=== PATIENT | male | born 1945 | race Caucasian/White ===

== ENCOUNTER 2018-02-21 16:20 | Emergency (ER) | payer OTHER, MEDICARE ==
[2018-02-21] MEDS ORDERED: ASPIRIN 81 MG TABLET, CHEWABLE PO ONE (17:11)
--- NOTE | 2018-02-21 17:13 | ER Document Report ---
ED Medical Screen (RME) - General Chief Complaint: Chest Pain Stated Complaint: CHEST PAIN Time Seen by Provider: 02/21/18 17:06 TRAVEL OUTSIDE OF THE U.S. IN LAST 30 DAYS: No - HPI Notes: 02/21/18 17:12 Chest pain recent pacemaker placement in [place] 2 weeks ago substernal intermittent no pain in triage - Related Data Allergies/Adverse Reactions: No Known Allergies Allergy (Verified 09/05/16 16:25) Past Medical History - Past Medical History Cardiac Medical History: Reports: Hx Atrial Fibrillation, Hx Hypercholesterolemia, Hx Hypertension Past Surgical History: Reports: Hx Cardiac Catheterization - stents x3, Hx Cardiac Surgery - stents - Immunizations Hx Diphtheria, Pertussis, Tetanus Vaccination: Yes Review of Systems - Review of Systems Cardiovascular: Chest pain Physical Exam - Vital signs Vitals: Temp Pulse Resp BP Pulse Ox 97.9 F 85 20 140/74 H 98 02/21/18 16:37 02/21/18 16:37 02/21/18 16:37 02/21/18 16:37 02/21/18 16:37 - Respiratory Respiratory status: No respiratory distress Chest status: Nontender Breath sounds: Normal Chest palpation: Normal - Cardiovascular Rhythm: Regular Heart sounds: Normal auscultation Course - Vital Signs Vital signs: Temp Pulse Resp BP Pulse Ox 97.9 F 85 20 140/74 H 98 02/21/18 16:37 02/21/18 16:37 02/21/18 16:37 02/21/18 16:37 02/21/18 16:37 Doctor's Discharge - Discharge Referrals: PAUL LARA MD [Primary Care Provider] - Follow up as needed
--- NOTE | 2018-02-21 17:38 | RADIOLOGY REPORT (SQ) ---
EXAM DESCRIPTION: CHEST 2 VIEWS COMPLETED DATE/TIME: 02/21/2018 5:26 pm REASON FOR STUDY: cp COMPARISON: 09/10/2015 EXAM PARAMETERS: NUMBER OF VIEWS: two views TECHNIQUE: Digital Frontal and Lateral radiographic views of the chest acquired. RADIATION DOSE: NA LIMITATIONS: none FINDINGS: LUNGS AND PLEURA: No opacities, masses or pneumothorax. No pleural effusion. MEDIASTINUM AND HILAR STRUCTURES: Stable postoperative appearance. HEART AND VASCULAR STRUCTURES: Cardiomegaly stable. No overt CHF. BONES: No acute findings. HARDWARE: Transvenous pacer. Operative change mediastinum OTHER: No other significant finding. IMPRESSION: Cardiomegaly. Postoperative changes in transvenous pacer. No overt CHF. TECHNICAL DOCUMENTATION: JOB ID: [id number] [employer]- All Rights Reserved Reading location - IP/workstation name: [email or web address]
[2018-02-21 18:04] LABS: ABSOLUTE BASOPHILS # (AUTO) 0.1 10^3/uL (0.0-0.2); ABSOLUTE EOSINOPHILS # (AUTO) 0.2 10^3/uL (0.0-0.6); ABSOLUTE LYMPHOCYTES (AUTO) 1.7 10^3/uL (0.5-4.7); ABSOLUTE MONOCYTES (AUTO) 0.8 10^3/uL (0.1-1.4); ABSOLUTE NEUT (AUTO) 8.5 10^3/uL (1.7-8.2); BASOPHILS % (AUTO) 0.5 % (0-2); EOSINOPHILS % (AUTO) 1.8 % (0-6); HEMATOCRIT 35.7 % (37.9-51.0); HEMOGLOBIN 12.2 g/dL (13.5-17.0); LYMPHOCYTES % (AUTO) 15.3 % (13-45); MEAN CORPUSCULAR HEMOGLOBIN 31.5 pg (27.0-33.4); MEAN CORPUSCULAR HGB CONC 34.2 g/dL (32.0-36.0); MEAN CORPUSCULAR VOLUME 92 fl (80-97); MONOCYTES % (AUTO) 7.3 % (3-13); PLATELET COUNT 305 10^3/uL (150-450); RED BLOOD COUNT 3.89 10^6/uL (4.35-5.55); RED CELL DISTRIBUTION WIDTH 13.3 % (11.5-14.0); SEGMENTED NEUTROPHILS % (AUTO) 75.1 % (42-78); TOTAL CELLS COUNTED % (AUTO) 100 %; WHITE BLOOD COUNT 11.3 10^3/uL (4.0-10.5)
[2018-02-21 18:23] LABS: ALANINE AMINOTRANSFERASE 31 U/L (21-72); ALBUMIN 4.1 g/dL (3.5-5.0); ALKALINE PHOSPHATASE 206 U/L (38-126); ANION GAP 12 (5-19); ASPARTATE AMINO TRANSFERASE 27 U/L (17-59); BILIRUBIN,DIRECT 0.5 mg/dL (0.0-0.4); BILIRUBIN,TOTAL 0.6 mg/dL (0.2-1.3); BLOOD UREA NITROGEN 28 mg/dL (7-20); CALCIUM 9.7 mg/dL (8.4-10.2); CARBON DIOXIDE 29 mmol/L (22-30); CHLORIDE 104 mmol/L (98-107); CREATINE KINASE 56 U/L (55-170); GLUCOSE 93 mg/dL (75-110); POTASSIUM 4.7 mmol/L (3.6-5.0); SODIUM 144.5 mmol/L (137-145); TOTAL PROTEIN 7.3 g/dL (6.3-8.2)
[2018-02-21 18:34] LABS: CREATINE KINASE MB 1.06 ng/mL (<4.55)
[2018-02-21 18:35] LABS: TROPONIN I < 0.012 ng/mL
--- NOTE | 2018-02-21 18:56 | ER Document Report ---
ED Cardiac - General Mode of Arrival: Ambulatory Information source: Patient TRAVEL OUTSIDE OF THE U.S. IN LAST 30 DAYS: No <RAMY STANLEY - Last Filed: 02/22/18 00:09> <KAILEE CONNELLY - Last Filed: 02/22/18 00:31> - General Chief Complaint: Chest Pain Stated Complaint: CHEST PAIN Time Seen by Provider: 02/21/18 17:06 Notes: 73 y.o male presents to the ED with CP today around 1430 today. Pt reports that after onset of CP he took one Nitroglycerin wich relieved his sx. Pt reports that he had CP yesterday for a short period of time and that he has had CP like this in the past. He states that his pain is located across his upper chest, starting as a pressure and then continues as a dull pain. He reports taking 324mg of Aspirin today. Pt denies any trouble breathing, fever or cough but admits to a dizzy spell about 4 days ago. He denies his pacemaker firing during his dizzy spell. Pt recently had a [employer] pacemaker placed in [place] with Dr. Paul. He states that he got a pacemaker because he was having a very low heart rate and intermittent erratic heart rate. Pt states that his pacemaker autotransmits. Pt reports a Hx of 2 stent placements and a recent cardiac catheterization since his stent placement, before seeing Dr. Paul for his having pacemaker placement one month ago. Pt reports that he takes 81mg Apirin and Eliquis daily as well as 3.2mg of Coreg which he was recently started on by Dr. Paul. [facility] referred him to Dr. Paul for the pacemaker. ( RAMY STANLEY) - Related Data Allergies/Adverse Reactions: No Known Allergies Allergy (Verified 09/05/16 16:25) Past Medical History - General Information source: Patient - Social History Smoking Status: Never Smoker Chew tobacco use (# tins/day): No Frequency of alcohol use: Rare Drug Abuse: None Family History: Reviewed & Not Pertinent Patient has suicidal ideation: No Patient has homicidal ideation: No - Past Medical History Cardiac Medical History: Reports: Hx Atrial Fibrillation, Hx Hypercholesterolemia, Hx Hypertension Endocrine Medical History: Reports: Hx Diabetes Mellitus Type 2 Renal/ Medical History: Denies: Hx Peritoneal Dialysis Past Surgical History: Reports: Hx Cardiac Catheterization - stents x3, Hx Cardiac Surgery - pacemaker - Immunizations Hx Diphtheria, Pertussis, Tetanus Vaccination: Yes <RAMY STANLEY - Last Filed: 02/22/18 00:09> Review of Systems - Review of Systems Constitutional: See HPI. denies: Fever EENT: No symptoms reported Cardiovascular: See HPI, Chest pain, Dizziness - 4 days ago Respiratory: See HPI. denies: Cough, Short of breath Gastrointestinal: No symptoms reported Genitourinary: No symptoms reported Male Genitourinary: No symptoms reported Musculoskeletal: No symptoms reported Skin: No symptoms reported Hematologic/Lymphatic: No symptoms reported Neurological/Psychological: No symptoms reported -: Yes All other systems reviewed and negative <RAMY STANLEY - Last Filed: 02/22/18 00:09> Physical Exam <RAMY STANLEY - Last Filed: 02/22/18 00:09> <KAILEE CONNELLY - Last Filed: 02/22/18 00:31> - Vital signs Vitals: Temp Pulse Resp BP Pulse Ox 97.9 F 85 20 140/74 H 98 02/21/18 16:37 02/21/18 16:37 02/21/18 16:37 02/21/18 16:37 02/21/18 16:37 - Notes Notes: Physical Exam: General: Alert, appears well. HEENT: Normocephalic. Atraumatic. PERRL. Extraocular movements intact. Oropharynx clear. Neck: Supple. Non-tender. Respiratory: No respiratory distress. Clear and equal breath sounds bilaterally. Cardiovascular: Regular rate and rhythm. Abdominal: Normal Inspection. Non-tender. No distension. Normal Bowel Sounds. Back: Non-tender. No deformity or step off. Extremities: Moves all four extremities. Upper extremities: Normal inspection. Normal ROM. Lower extremities: Normal inspection. No edema. Normal ROM. Neurological: Normal cognition. AAOx3. Normal speech. Psychological: Normal affect. Normal Mood. Skin: Warm. Dry. Normal color. (RAMY STANLEY) Course - Laboratory Result Diagrams: 02/21/18 17:42 02/21/18 17:42 <RAMY STANLEY - Last Filed: 02/22/18 00:09> - Laboratory Result Diagrams: 02/21/18 17:42 02/21/18 17:42 <KAILEE CONNELLY - Last Filed: 02/22/18 00:31> - Re-evaluation Re-evalutation: 02/21/18 20:07 Talked with Regan from [employer] who reports that the pacemaker is functioning well and is without events. 02/21/18 20:10 Talked with [facility] to have shingle weaver call back concerning pt. 02/21/18 20:35 Talked with Radha Clemens who called back from from [facility]. She states that if the patient's second Troponin is negative then patient may go home. 02/21/18 21:34 Pt is updated. No further CP. (RAMY STANLEY) 02/22/18 22:45 Patient is a 73-year-old male who comes in complaining of chest pain that resolved with nitro over the last 2 days. Patient had a cardiac catheterization about a month ago which showed patent stents and chronic previously known occlusion. Patient had a pacemaker placed 2 weeks ago. It was interrogated this evening. It is functioning well with no events. Patient has had no further chest pain in the emergency department. No acute findings on EKG. Troponin negative 2. Discussed with Diamond Clemens from [facility]. Patient is safe to go home this evening. He is comfortable with this plan. He is to follow-up with his MD shingle weaver, Dr. Garza. Recommend starting the patient on Imdur 30 mg. Patient is agreeable to this plan. Stable for discharge. Return if any worsening or concerning symptoms. Understands and agrees with plan. Family present for discussion. (KAILEE CONNELLY) - Vital Signs Vital signs: Temp Pulse Resp BP Pulse Ox 98.0 F 85 20 150/109 H 97 02/21/18 22:40 02/21/18 16:37 02/21/18 22:37 02/21/18 22:37 02/21/18 22:37 - Laboratory Laboratory results interpreted by me: 02/21/18 02/21/18 17:42 17:42 WBC 11.3 H RBC 3.89 L Hgb 12.2 L Hct 35.7 L Absolute Neutrophils 8.5 H BUN 28 H Direct Bilirubin 0.5 H Alkaline Phosphatase 206 H Critical Care Note - Critical Care Note Total time excluding time spent on procedures (mins): 35 - Evaluation and management of chest pain with multiple re-evaluations, coordination with specialist, interrogation of pacemaker, counseling of patient and family <KAILEE CONNELLY - Last Filed: 02/22/18 00:31> Discharge <RAMY STANLEY - Last Filed: 02/22/18 00:09> <KAILEE CONNELLY - Last Filed: 02/22/18 00:31> - Discharge Clinical Impression: Encounter for interrogation of cardiac pacemaker Chest pain Qualifiers: Chest pain type: unspecified Qualified Code(s): R07.9 - Chest pain, unspecified Condition: Stable Disposition: HOME, SELF-CARE Instructions: Chest Pain of Unclear Cause ([facility]) Additional Instructions: Please follow-up with your shingle weaver this week. Prescriptions: Isosorbide Mononitrate [Imdur 30 mg Tablet.er] 30 mg PO DAILY #30 tab.er.24h Scribe Attestation: 02/22/18 00:31 I personally performed the services described in the documentation, reviewed and edited the documentation which was dictated to the scribe in my presence, and it accurately records my words and actions. (KAILEE CONNELLY) Scribe Documentation - Scribe Written by Kranthi:: Kranthi Braden 02/21/181922 acting as scribe for :: Payal <RAMY STANLEY - Last Filed: 02/22/18 00:09>
--- NOTE | 2018-02-21 19:37 | EKG REPORT ---
SEVERITY:- ABNORMAL ECG - VENTRICULAR-PACED COMPLEXES : Confirmed by: Yahir Delgado MD 21-Feb-2018 19:37:13
[2018-02-21 22:45] VITALS: BP 150/109
== END 2018-02-21 22:45 | disposition home or self-care (01) ==
LOC: ER 16:20
DX: R07.89 Other chest pain (principal); Z45.018 Encounter for adjustment and management of other part of cardiac pacemaker; E11.9 Type 2 diabetes mellitus without complications; I10 Essential (primary) hypertension; I48.91 Unspecified atrial fibrillation; Z79.01 Long term (current) use of anticoagulants; Z95.5 Presence of coronary angioplasty implant and graft; Z79.82 Long term (current) use of aspirin
CPT/HCPCS: 36415; 71046; 80053; 82550; 82553; 84484; 85025; 93005; 93010; 99291

== ENCOUNTER 2018-07-13 15:36 | Emergency (ER) | payer OTHER, MEDICARE ==
[2018-07-13] MEDS ORDERED: LIDOCAINE 1% INJ-PF (10 MG/ML) 30 ML SDV INJ ONE (15:57)
[2018-07-13] MEDS ORDERED: DIPH/PERTUSS(ACELL)/TETANUS VAC/PF 0.5 ML SYR (>=10YO) IM ONE (16:17)
--- NOTE | 2018-07-13 16:22 | ER Document Report ---
HPI - HPI Pain Level: 2 Notes: Patient is a 73-year-old male with a history of heart disease and on Eliquis who presents to the ED complaining of a laceration to his right lateral fifth digit of the hand status post injury prior to arrival. Patient states that he cut it on a piece of metal and is not sure of his last tetanus. Patient states that he did have blood clotting powder that he applied to the wound to stop the bleeding successfully. Patient states that he is still able to move his finger without any difficulties. He has no other concerns or complaints. Pains do not radiate. Denies drug allergies. Denies any headache, fever, URI, sore throat, chest pain, palpitations, syncope, cough, shortness of breath, wheeze, dyspnea, abdominal pain, nausea/vomiting/diarrhea, urinary retention, dysuria, hematuria, numbness/tingling, muscle paralysis/weakness, or rash. - ROS Systems Reviewed and Negative: Yes All other systems reviewed and negative Past Medical History - Social History Smoking Status: Unknown if Ever Smoked Family History: Reviewed & Not Pertinent - Past Medical History Cardiac Medical History: Reports: Hx Atrial Fibrillation, Hx Hypercholesterolemia, Hx Hypertension Endocrine Medical History: Reports: Hx Diabetes Mellitus Type 2 Renal/ Medical History: Denies: Hx Peritoneal Dialysis Past Surgical History: Reports: Hx Cardiac Catheterization - stents x3, Hx Cardiac Surgery - pacemaker - Immunizations Hx Diphtheria, Pertussis, Tetanus Vaccination: Yes Vertical Provider Document - CONSTITUTIONAL Agree With Documented VS: Yes Notes: PHYSICAL EXAMINATION: GENERAL: Well-appearing, well-nourished and in no acute distress. LUNGS: Breath sounds clear to auscultation bilaterally and equal. No wheezes rales or rhonchi. HEART: Regular rate and rhythm without murmurs, rubs, gallops. Musculoskeletal: Rt 5th finger: FROM to passive/active. Strength 5+/5. N/V intact distal. No bony tenderness. + 1.5cm laceration, superficial/linear, noted. No active bleeding. Extremities: No cyanosis, clubbing, or edema b/l. Peripheral pulses 2+. Capillary refill less than 3 seconds. NEUROLOGICAL: Normal speech, normal gait. Normal sensory, motor exams PSYCH: Normal mood, normal affect. SKIN: see above. - INFECTION CONTROL TRAVEL OUTSIDE OF THE [place].S. IN LAST 30 DAYS: No Course - Re-evaluation Re-evalutation: 11/02/18 17:10 Patient is an afebrile, well-hydrated, 73-year-old male who presents to the ED with a laceration to his right fifth finger laterally. Vitals are acceptable. PE is otherwise unremarkable for any neurovascular compromise, obvious tendon/ ligament rupture, obvious fracture/dislocation, septic joint. Patient is nontoxic-appearing and is tolerating p.o. without difficulties. Wound was thoroughly irrigated and cleansed. Wound edges were approximated appropriately utilizing 3 simple interrupted sutures. Wound dressing was placed and wound instructions reviewed. Patient tolerated procedure well without any complications. Tetanus was updated today. No further labs or imaging warranted. Sutures will need removed in 10 days. Recheck with your PCM in 2-3 days. Consider consult orthopedics if needed. Return to the ED with any worsening/concerning symptoms otherwise as reviewed in discharge. Patient is in agreement. - Vital Signs Vital signs: Temp Pulse Resp BP Pulse Ox 98.1 F 96 16 93/75 L 96 07/13/18 15:41 07/13/18 15:41 07/13/18 15:41 07/13/18 15:41 07/13/18 15:41 Procedures - Laceration/Wound Repair Right Finger 5th digit Time completed: 17:10 Wound length (cm): 1.5 Wound's Depth, Shape: Superficial, Linear Laceration pre-procedure: Sterile PPE donned, Sterile drapes applied, Other - chlorhexadine/saline Anesthetic type: 1% Lidocaine Volume Anesthetic (mLs): 6 - digital block Wound explored: Clean, No foreign body removed Irrigated w/ Saline (mLs): 100 Wound Debrided: none Wound Repaired With: Sutures Suture Size/Type: 5:0, Nylon Number of Sutures: 3 Layer Closure?: No Post-procedure wound care: Sterile dressing applied Post-procedure NV exam normal: Yes Complications: No Discharge - Discharge Clinical Impression: Finger laceration Qualifiers: Encounter type: initial encounter Finger: little finger Damage to nail status: without damage Foreign body presence: without foreign body Laterality: right Qualified Code(s): S61.216A - Laceration without foreign body of right little finger without damage to nail, initial encounter Condition: Stable Disposition: HOME, SELF-CARE Instructions: Antibiotic Ointment Protection ([facility]), Laceration Care ([facility]), Prophylactic Antibiotic ([facility]), Soap Cleansing ([facility]), Tetanus Immunization Given ([facility]) Additional Instructions: Do not shower or bathe for 24 hours. After 24 hours you may shower but no submersion of the wound under water. Keep the original dressing on the wound for 24 hours unless the drainage soaks through. Change the dressing daily thereafter and keep the knots of the suture material clean from any dried discharge. You may leave the wound open to the air once there is no more discharge. See your PCM in 2-3 days for a recheck. Monitor for any signs of worsening pain or redness, purulent drainage, streaks, and/or fever. Return to the ED if noticing any of the above symptoms or as needed. Take medications as directed. Your sutures will need to be removed in 10 days. Prescriptions: Cephalexin Monohydrate [Keflex 500 mg Capsule] 500 mg PO TID #21 capsule Referrals: PAUL LARA MD [Primary Care Provider] - 07/16/18 [facility] [Provider Group] - Follow up as needed
[2018-07-13 17:26] VITALS: BP 110/68
== END 2018-07-13 17:26 | disposition home or self-care (01) ==
LOC: ER 15:36
PROC: 0HQFXZZ Repair Right Hand Skin, External Approach (ICD-10-PCS; principal; 2018-07-13)
DX: S61.216A Laceration without foreign body of right little finger without damage to nail, initial encounter (principal); W45.8XXA Other foreign body or object entering through skin, initial encounter; Z79.01 Long term (current) use of anticoagulants; I10 Essential (primary) hypertension; E11.9 Type 2 diabetes mellitus without complications
CPT/HCPCS: 99283; 90471; 90715; 12001; J3490

== ENCOUNTER → 2018-09-18 | Outpatient (CLI) | payer OTHER ==
--- NOTE | 2018-09-18 12:24 | RADIOLOGY REPORT (SQ) ---
EXAM DESCRIPTION: /S RETROPERITON LTD COMPLETED DATE/TIME: 09/18/2018 11:53 am REASON FOR STUDY: AAA (I71.4) I71.4 ABDOMINAL AORTIC ANEURYSM, WITHOUT RUPTURE COMPARISON: None. TECHNIQUE: Static and dynamic grayscale images acquired of the aorta and stored on PACs. Selected co filomena Doppler and spectral images recorded. LIMITATIONS: None. FINDINGS: AORTIC CALIBER MAXIMAL PROXIMAL: 2.5 cm. MID: 2.8 cm. DISTAL: 6.1 cm. ILIAC DIAMETER RIGHT: 2.2 cm. LEFT: 2.1 cm. OTHER: No other significant finding. IMPRESSION: 6.1 CM INFRARENAL ABDOMINAL AORTIC ANEURYSM. DILATION OF THE COMMON ILIAC ARTERIES. COMMENT: Aortic aneurysm imaging followup: ?5.5 cm Referral to vascular surgeon recommended *Based upon the Society for Vascular Surgery Guidelines: J Vasc Surg. 2009 Oct;50(4 Suppl):S2-49 *For aortas of maximum diameter of 2.6-2.9 cm meeting the criteria for AAA (?1.5 x proximal normal se gment) TECHNICAL DOCUMENTATION: JOB ID: [id number] [email or web address]- All Rights Reserved Reading location - IP/workstation name: [email or web address]
== END ==
LOC: RAD 10:41
PROVIDERS: ATTEND Surgery
DX: I71.4 Abdominal aortic aneurysm, without rupture (principal)
CPT/HCPCS: 76775

== ENCOUNTER 2018-10-06 13:26 | Emergency (ER) | payer OTHER, MEDICARE ==
[2018-10-06 15:26] VITALS: BP 118/94
--- NOTE | 2018-10-06 15:27 | ER Document Report ---
ED Respiratory Problem - General Chief Complaint: Cold Symptoms Stated Complaint: RUNNY NOSE/COUGH Time Seen by Provider: 10/06/18 14:57 Mode of Arrival: Ambulatory Information source: Patient, REPLACED BY [facility] Records Notes: 73-year-old male patient comes emergency room with a 4-day history of yellow productive cough and runny nose. He reports he did have a fever of 101 yesterday. TRAVEL OUTSIDE OF THE [place] IN LAST 30 DAYS: No - Related Data Allergies/Adverse Reactions: No Known Allergies Allergy (Verified 10/06/18 14:56) Past Medical History - General Information source: Patient, REPLACED BY [facility] Records - Social History Smoking Status: Former Smoker Cigarette use (# per day): No Chew tobacco use (# tins/day): No Smoking Education Provided: No Frequency of alcohol use: None Drug Abuse: None Occupation: Retired Lives with: Family Family History: Reviewed & Not Pertinent Patient has suicidal ideation: No Patient has homicidal ideation: No - Past Medical History Cardiac Medical History: Reports: Hx Atrial Fibrillation, Hx Hypercholesterolemia, Hx Hypertension Pulmonary Medical History: Reports: None EENT Medical History: Reports: None Neurological Medical History: Reports: None Endocrine Medical History: Reports: Hx Diabetes Mellitus Type 2 Renal/ Medical History: Reports: None GI Medical History: Reports: None Musculoskeletal Medical History: Reports None Past Surgical History: Reports: Hx Cardiac Catheterization, Hx Coronary Artery Bypass Graft, Hx Coronary Stent - X3, Hx Pacemaker - Immunizations Hx Diphtheria, Pertussis, Tetanus Vaccination: Yes Review of Systems - Review of Systems Constitutional: Fever EENT: Nose discharge Cardiovascular: No symptoms reported Respiratory: Cough, Sputum Gastrointestinal: No symptoms reported Genitourinary: No symptoms reported Musculoskeletal: Leg swelling - Right lower extremity swelling since his bypass surgery, vein was harvested from the right lower extremity Skin: No symptoms reported Hematologic/Lymphatic: No symptoms reported Neurological/Psychological: No symptoms reported Physical Exam - Vital signs Vitals: Temp Pulse Resp BP Pulse Ox 97.9 F 86 20 94/69 L 97 10/06/18 13:44 10/06/18 13:44 10/06/18 13:44 10/06/18 13:44 10/06/18 13:44 - Notes Notes: PHYSICAL EXAMINATION: GENERAL: Well-appearing, well-nourished and in no acute distress. HEAD: Atraumatic, normocephalic. EYES: Pupils equal round and reactive to light, extraocular movements intact, sclera anicteric, conjunctiva are normal. ENT: nares patent, some nasal congestion, oropharynx clear without exudates. Moist mucous membranes. NECK: Normal range of motion, supple without lymphadenopathy LUNGS: Some rhonchi with cough. No wheezes heard. HEART: Regular rate and rhythm without murmurs ABDOMEN: Soft, nontender, normoactive bowel sounds. No guarding, no rebound. No masses appreciated. EXTREMITIES: Normal range of motion. There is some chronic swelling to the right lower extremity with the patient states has occurred since the veins were harvested for his bypass surgery. No cyanosis. NEUROLOGICAL: Cranial nerves grossly intact. Normal speech, normal gait. Normal sensory, motor, and reflex exams. PSYCH: Normal mood, normal affect. SKIN: Warm, Dry, normal turgor, no rashes or lesions noted. Course - Vital Signs Vital signs: Temp Pulse Resp BP Pulse Ox 97.5 F 70 16 118/94 H 97 10/06/18 15:24 10/06/18 15:24 10/06/18 15:24 10/06/18 15:24 10/06/18 13:44 Discharge - Discharge Clinical Impression: Bronchitis Condition: Stable Disposition: HOME, SELF-CARE Additional Instructions: Bronchitis You have acute bronchitis. This disease is an infection or inflammation of the air passageways in your lungs. Symptoms usually include cough, low grade fever, shortness of breath, and wheezing. The cough usually persists for a couple of weeks. Most cases of bronchitis get better without antibiotics. We prescribe antibiotics when we believe bacteria are damaging your airways, or if there's high risk the bronchitis will worsen into pneumonia. Increase your fluid intake. A cool mist humidifier may make your lungs more comfortable. An expectorant (cough medicine that loosens phlegm) can help. If you smoke, STOP!!! Recovery from bronchitis can be somewhat slow, but you should see improvement within a day or two. Repeated episodes of bronchitis may result in lung damage -- for example, chronic bronchitis, recurrent pneumonias, or emphysema. Call the doctor if you develop increasing fever, shortness of breath, chest pain, bloody sputum, or otherwise worsen. If you have not improved at all after several days, contact the physician. Take medications as prescribed. Drink plenty of fluids. Try Robitussin-DM to help suppress your cough. Get plenty of rest. Follow-up with your primary care provider if not improving. RETURN TO THE EMERGENCY ROOM IF ANY NEW OR WORSENING SYMPTOMS. Prescriptions: Benzonatate [Tessalon Perles 100 mg Capsule] 100 mg PO ASDIR PRN #30 capsule PRN Reason: Doxycycline Hyclate 100 mg PO BID #14 tablet.
== END 2018-10-06 15:31 | disposition home or self-care (01) ==
LOC: ER 13:26
DX: J40 Bronchitis, not specified as acute or chronic (principal); R05 Cough; R09.89 Other specified symptoms and signs involving the circulatory and respiratory systems; R50.9 Fever, unspecified; M79.89 Other specified soft tissue disorders; I10 Essential (primary) hypertension; E11.9 Type 2 diabetes mellitus without complications; Z87.891 Personal history of nicotine dependence; Z95.1 Presence of aortocoronary bypass graft; Z95.5 Presence of coronary angioplasty implant and graft
CPT/HCPCS: 99283

== ENCOUNTER → 2018-10-17 | Outpatient (CLI) | payer MEDICARE ==
--- NOTE | 2018-10-17 11:06 | RADIOLOGY REPORT (SQ) ---
EXAM DESCRIPTION: CTA ABDOMEN/PELVIS W WO COMPLETED DATE/TIME: 10/17/2018 9:52 am REASON FOR STUDY: AAA (I71.4) I71.4 ABDOMINAL AORTIC ANEURYSM, WITHOUT RUPTURE COMPARISON: None. TECHNIQUE: CT scan of the abdomen and pelvis performed with and without intravenous contrast using h elical scanning technique with dynamic intravenous contrast injection. Images reviewed with lung, sof t tissue, and bone windows. Reconstructed coronal and sagittal MPR images reviewed. All images stored on PACS. Advanced 3D imaging as volume rendering, MIPS, SSD performed? yes All CT scanners at this facility use dose modulation, iterative reconstruction, and/or weight based d osing when appropriate to reduce radiation dose to as low as reasonably achievable (ALARA). [facility]: Dose Right [facility]: CareDose [facility]: Dose Right [facility]: Teradose 4D [facility]: MightyMeeting CONTRAST TYPE AND DOSE: contrast/concentration: Isovue 350.00 mg/ml; Total Contrast Delivered: 60.0 ml; Total Saline Delivered: 80.0 ml RENAL FUNCTION: Creatinine 1.1 LIMITATIONS: None. FINDINGS: NON-CONTRASTED IMAGING: Calcified stones are present in the gallbladder. POST-CONTRAST IMAGING: AORTA AND VESSELS: Aortic diameters and measurements of the infrarenal abdominal aorta are as follows : Distal thoracic aorta 3.2 cm Aorta at the hiatus 3.1 cm Aorta at the renal artery origins 3.4 x 3 cm Infrarenal abdominal aorta aneurysm is present, 6 x 6 cm in greatest AP and transverse diameter. Thi s extends craniocaudally for 10 cm Abdominal aorta just above the iliac bifurcation 4.7 x 4.3 cm Right proximal common iliac artery 2.2 cm, right external iliac artery 1.5 cm. Left proximal common iliac artery 2.2 cm, external iliac artery 1.3 cm. 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 There is moderate atherosclerotic change at the celiac a rtery causing about 50% stenosis, greater than 50% stenosis bilateral proximal renal arteries. Dupli cated bilateral renal arteries. Left gastric artery has its own origin off the aorta just proximal t o the celiac. LUNG BASES: Mild pulmonary fibrosis at both lung bases. Cardiomegaly. LIVER: No masses or abnormal enhancement. Normal size SPLEEN: Normal size. No focal lesions. PANCREAS: No masses. No significant calcifications. No adjacent inflammation or peripancreatic fluid collections. Pancreatic duct not dilated. GALLBLADDER: Gallstones. No inflammatory changes to suggest cholecystitis. ADRENAL GLANDS: No significant masses or asymmetry. RIGHT KIDNEY AND URETER: No mass, calculi or urinary tract obstruction. LEFT KIDNEY AND URETER: No mass, calculi or urinary tract obstruction. RETROPERITONEUM: No retroperitoneal adenopathy, hemorrhage or masses. BOWEL AND PERITONEAL CAVITY: No masses or inflammatory changes. No free fluid or peritoneal masses. No CT evidence of bowel obstruction. APPENDIX: Surgically absent ABDOMINAL WALL: No masses. No hernias. BONY STRUCTURES: No significant or acute findings. 3-D IMAGING: Confirms the above findings. OTHER: No other significant finding. IMPRESSION: Infrarenal abdominal aortic aneurysm as above TECHNICAL DOCUMENTATION: JOB ID: [id number] Quality ID # [id number]: Final reports with documentation of one or more dose reduction techniques (e.g., Au tomated exposure control, adjustment of the mA and/or kV according to patient size, use of iterative reconstruction technique) 2010 [employer]- All Rights Reserved Reading location - IP/workstation name: [email or web address]
== END ==
LOC: RAD 09:06
PROVIDERS: ATTEND Surgery Vascular Surgery
DX: I71.4 Abdominal aortic aneurysm, without rupture (principal)
CPT/HCPCS: 74174; 82565

== ENCOUNTER 2018-11-11 10:28 | Emergency (ER) | payer OTHER, MEDICARE ==
--- NOTE | 2018-11-11 10:55 | ER Document Report ---
ED Medical Screen (RME) - General Chief Complaint: Post Surgical Bleeding Stated Complaint: POST OP COMPLICATIONS Time Seen by Provider: 11/11/18 10:54 Primary Care Provider: SARAI DING MD [Primary Care Provider] - Follow up as needed Mode of Arrival: Ambulatory Information source: Patient TRAVEL OUTSIDE OF THE [place] IN LAST 30 DAYS: No - HPI Patient complains to provider of: post-surgical complication Onset: Yesterday - pt, is s/p aneurysm suregery last week at [facility]. Had bleeding through dressing this am - Related Data Allergies/Adverse Reactions: No Known Allergies Allergy (Verified 11/11/18 10:37) Past Medical History - Past Medical History Cardiac Medical History: Reports: Hx Atrial Fibrillation, Hx Hypercholesterolemia, Hx Hypertension Endocrine Medical History: Reports: Hx Diabetes Mellitus Type 2 Renal/ Medical History: Denies: Hx Peritoneal Dialysis Past Surgical History: Reports: Hx Cardiac Catheterization, Hx Cardiac Surgery - pacemaker, Hx Coronary Artery Bypass Graft, Hx Coronary Stent - X3, Hx Pacemaker - Immunizations Hx Diphtheria, Pertussis, Tetanus Vaccination: Yes Physical Exam - Vital signs Vitals: Temp Pulse Resp BP Pulse Ox 98.5 F 73 16 109/66 98 11/11/18 10:42 11/11/18 10:42 11/11/18 10:42 11/11/18 10:42 11/11/18 10:42 Course - Vital Signs Vital signs: Temp Pulse Resp BP Pulse Ox 98.5 F 73 16 109/66 98 11/11/18 10:42 11/11/18 10:42 11/11/18 10:42 11/11/18 10:42 11/11/18 10:42 Doctor's Discharge - Discharge Referrals: SARAI DING MD [Primary Care Provider] - Follow up as needed
[2018-11-11 11:49] LABS: ABSOLUTE EOSINOPHILS # (AUTO) 0.1 10^3/uL (0.0-0.6); ABSOLUTE LYMPHOCYTES (AUTO) 0.8 10^3/uL (0.5-4.7); ABSOLUTE MONOCYTES (AUTO) 1.1 10^3/uL (0.1-1.4); ABSOLUTE NEUT (AUTO) 8.9 10^3/uL (1.7-8.2); BASOPHILS % (AUTO) 0.4 % (0-2); EOSINOPHILS % (AUTO) 0.6 % (0-6); HEMATOCRIT 32.9 % (37.9-51.0); HEMOGLOBIN 11.3 g/dL (13.5-17.0); LYMPHOCYTES % (AUTO) 7.8 % (13-45); MEAN CORPUSCULAR HEMOGLOBIN 31.2 pg (27.0-33.4); MEAN CORPUSCULAR HGB CONC 34.2 g/dL (32.0-36.0); MEAN CORPUSCULAR VOLUME 91 fl (80-97); MONOCYTES % (AUTO) 10.1 % (3-13); PLATELET COUNT 229 10^3/uL (150-450); RED BLOOD COUNT 3.61 10^6/uL (4.35-5.55); RED CELL DISTRIBUTION WIDTH 15.2 % (11.5-14.0); SEGMENTED NEUTROPHILS % (AUTO) 81.1 % (42-78); TOTAL CELLS COUNTED % (AUTO) 100 %; WHITE BLOOD COUNT 10.9 10^3/uL (4.0-10.5)
[2018-11-11 12:08] LABS: ALANINE AMINOTRANSFERASE 43 U/L (21-72); ALBUMIN 3.6 g/dL (3.5-5.0); ALKALINE PHOSPHATASE 203 U/L (38-126); ANION GAP 7 (5-19); ASPARTATE AMINO TRANSFERASE 41 U/L (17-59); BILIRUBIN,DIRECT 0.4 mg/dL (0.0-0.4); BLOOD UREA NITROGEN 29 mg/dL (7-20); CALCIUM 8.8 mg/dL (8.4-10.2); CARBON DIOXIDE 33 mmol/L (22-30); CHLORIDE 100 mmol/L (98-107); GLUCOSE 117 mg/dL (75-110); POTASSIUM 3.9 mmol/L (3.6-5.0); SODIUM 139.6 mmol/L (137-145); TOTAL PROTEIN 6.4 g/dL (6.3-8.2)
--- NOTE | 2018-11-11 15:02 | ER Document Report ---
ED General - General Chief Complaint: Post Surgical Bleeding Stated Complaint: POST OP COMPLICATIONS Time Seen by Provider: 11/11/18 10:54 Primary Care Provider: SARAI DING MD [Primary Care Provider] - Follow up as needed Mode of Arrival: Ambulatory Notes: Patient is concerned about bleeding from a right groin incision where he had surgery for a AAA Monday. He was at [facility] and had a liner put into an abdominal aortic aneurysm Monday. She was discharged from that hospital on . He did well yesterday but then awakened this morning noting some blood in the bandage on his right inguinal area. He has a similar bandage on the left side, but no blood present there. Patient is on Eliquis. Has not been running any fever. TRAVEL OUTSIDE OF THE [place] IN LAST 30 DAYS: No - Related Data Allergies/Adverse Reactions: No Known Allergies Allergy (Verified 11/11/18 10:37) Past Medical History - General Information source: Patient - Social History Smoking Status: Former Smoker Family History: Reviewed & Not Pertinent Patient has suicidal ideation: No Patient has homicidal ideation: No - Past Medical History Cardiac Medical History: Reports: Hx Atrial Fibrillation, Hx Hypercholesterolemia, Hx Hypertension Endocrine Medical History: Reports: Hx Diabetes Mellitus Type 2 Past Surgical History: Reports: Hx Cardiac Catheterization, Hx Cardiac Surgery - pacemaker, Hx Coronary Artery Bypass Graft, Hx Coronary Stent - X3, Hx Pacemaker - Immunizations Hx Diphtheria, Pertussis, Tetanus Vaccination: Yes Review of Systems - Review of Systems Notes: CONSTITUTIONAL : Denies fever. CARDIOVASCULAR: Denies chest pain. RESPIRATORY: Denies cough, chest congestion, or shortness of breath. GASTROINTESTINAL: Denies abdominal pain or nausea, vomiting, or diarrhea. GENITOURINARY: Denies difficulty or painful urinating, urinary frequency, blood in urine. Physical Exam - Vital signs Vitals: Temp Pulse Resp BP Pulse Ox 98.5 F 73 16 109/66 98 11/11/18 10:42 11/11/18 10:42 11/11/18 10:42 11/11/18 10:42 11/11/18 10:42 Interpretation: Normal. No: Febrile Notes: PHYSICAL EXAMINATION: GENERAL: Well-appearing, no acute distress. HEAD: Atraumatic, normocephalic. NECK: Normal range of motion, supple. LUNGS: Breath sounds clear and equal bilaterally. HEART: Regular rate and rhythm without murmurs heard. ABDOMEN: Soft, nontender. Poking and prodding and moving all her elicited no painful response from the patient. No guarding or rebound or masses felt. Right groin has a Telfa type bandage overlying it. There is an area of dark bl ood, about 2 cm x 5-6 cm in the center of the dressing that is on the wound. The unaffected left side is normal without any apparent blood. The area of involvement on the right has increased in size since first noted this morning. Family says it looks like the blood is beginning to push through to the outside inferiorly and however, there is no loose free blood there yet. No erythema. Nothing to suggest infection. Extremities: Both feet are pink with pink and warm toes on both feet. I can feel a faint dorsalis pedis pulse on both feet. Course - Re-evaluation Re-evalutation: 11/11/18 18:[address] Denson, in [place], who is on-call for this patient's vascular surgeon. Spoke with him about my findings. He said that if there is not blood spurting out or briskly flowing out from the bandaged, there is no need for any further evaluation. Recommended changing the bandages and the family says is the day he is supposed to change the bandages so we change the bandages and it looked well. - Vital Signs Vital signs: Temp Pulse Resp BP Pulse Ox 98.5 F 73 21 H 152/76 H 100 11/11/18 14:36 11/11/18 10:42 11/11/18 14:36 11/11/18 14:36 11/11/18 14:36 - Laboratory Result Diagrams: 11/11/18 11:36 11/11/18 11:36 Laboratory results interpreted by me: 11/11/18 11/11/18 11:36 11:36 WBC 10.9 H RBC 3.61 L Hgb 11.3 L Hct 32.9 L RDW 15.2 H Seg Neutrophils % 81.1 H Lymphocytes % 7.8 L Absolute Neutrophils 8.9 H Carbon Dioxide 33 H BUN 29 H Glucose 117 H Alkaline Phosphatase 203 H Discharge - Discharge Clinical Impression: Visit for wound check, Postoperative bleeding from incision Condition: Stable Disposition: HOME, SELF-CARE Additional Instructions: Bleeding from surgical incision The bleeding that you are experiencing in your right groin is usually not a concern. This occurs quite frequently after such surgical procedures. The blood appears to be old and probably venous. There is no evidence of any arterial pumping or spurting of blood. There is very slow increase in the quantity of apparent blood present. I spoke with a in [place] who is on-call for Dr. Bills. Dr. Becerra. He recommended changing her dressings and IV follow-up with Dr. Bills in the next couple of days. Return for reevaluation if you develop brisk, steady bleeding from the incision site. Return also if you have spurting of blood. Return if you have a fever for the area turns very red like it is infected. FOLLOW-UP CARE: If you have been referred to a physician for follow-up care, call the physicians office for an appointment as you were instructed or within the next two days. If you experience worsening or a significant change in your symptoms, notify the physician immediately or return to the Emergency Department at any time for re-evaluation. Referrals: SARAI DING MD [Primary Care Provider] - Follow up as needed
[2018-11-11 15:10] VITALS: BP 152/76
== END 2018-11-11 15:18 | disposition home or self-care (01) ==
LOC: ER 10:28
DX: Z48.01 Encounter for change or removal of surgical wound dressing (principal); I10 Essential (primary) hypertension; E11.9 Type 2 diabetes mellitus without complications; I48.91 Unspecified atrial fibrillation; Z79.01 Long term (current) use of anticoagulants; Z95.0 Presence of cardiac pacemaker; Z95.1 Presence of aortocoronary bypass graft; Z95.5 Presence of coronary angioplasty implant and graft; Z87.891 Personal history of nicotine dependence
CPT/HCPCS: 36415; 80053; 85025; 99283

== ENCOUNTER 2019-03-11 15:59 | Observation (INO) | payer OTHER, MEDICARE ==
--- NOTE | 2019-03-11 17:33 | ER Document Report ---
ED Medical Screen (RME) - General Chief Complaint: Chest Pain Stated Complaint: CHEST PAIN Time Seen by Provider: 03/11/19 17:31 Primary Care Provider: SARAI DING MD [Primary Care Provider] - Follow up as needed Mode of Arrival: Ambulatory Information source: Patient Notes: Patient presents complaining of chest pain that started yesterday morning. Patient states he has been feeling occasionally lightheaded with an occasional irregular pulse. Patient denies any cough nausea vomiting or shortness of breath. Patient is on Eliquis for A. fib and also has a pacemaker. I have greeted and performed a rapid initial assessment of this patient. A comprehensive ED assessment and evaluation of the patient, analysis of test results and completion of the medical decision making process will be conducted by additional ED providers. TRAVEL OUTSIDE OF THE [place] IN LAST 30 DAYS: No - Related Data Allergies/Adverse Reactions: No Known Allergies Allergy (Verified 03/11/19 16:00) Past Medical History - Past Medical History Cardiac Medical History: Reports: Hx Atrial Fibrillation, Hx Hypercholesterolemia, Hx Hypertension Endocrine Medical History: Reports: Hx Diabetes Mellitus Type 2 Renal/ Medical History: Denies: Hx Peritoneal Dialysis Past Surgical History: Reports: Hx Cardiac Catheterization, Hx Cardiac Surgery - pacemaker, Hx Coronary Artery Bypass Graft, Hx Coronary Stent - X3, Hx Pacemaker - Immunizations Hx Diphtheria, Pertussis, Tetanus Vaccination: Yes Physical Exam - Vital signs Vitals: Temp Pulse Resp BP Pulse Ox 97.9 F 84 16 145/82 H 96 03/11/19 16:19 03/11/19 16:19 03/11/19 16:19 03/11/19 16:19 03/11/19 16:19 - General General appearance: Appears well, Alert In distress: None Notes: Heart rate regular, chest nontender Course - Vital Signs Vital signs: Temp Pulse Resp BP Pulse Ox 97.9 F 84 16 145/82 H 96 03/11/19 16:19 03/11/19 16:19 03/11/19 16:19 03/11/19 16:19 03/11/19 16:19 Doctor's Discharge - Discharge Referrals: SARAI DING MD [Primary Care Provider] - Follow up as needed
--- NOTE | 2019-03-11 18:19 | RADIOLOGY REPORT (SQ) ---
EXAM DESCRIPTION: CHEST 2 VIEWS COMPLETED DATE/TIME: 03/11/2019 6:06 pm REASON FOR STUDY: cp COMPARISON: 02/21/2018 EXAM PARAMETERS: NUMBER OF VIEWS: two views TECHNIQUE: Digital Frontal and Lateral radiographic views of the chest acquired. RADIATION DOSE: NA LIMITATIONS: none FINDINGS: LUNGS AND PLEURA: Stable bibasilar mildly increased interstitial markings, suggesting lead sprinkler mel interstitial lung disease. No opacities, masses or pneumothorax. No pleural effusion. MEDIASTINUM AND HILAR STRUCTURES: No masses or contour abnormalities. HEART AND VASCULAR STRUCTURES: Mild cardiomegaly. No central vascular congestion. BONES: No acute findings. HARDWARE: Midline surgical changes and transvenous pacer, stable. OTHER: No other significant finding. IMPRESSION: Stable radiographic appearance of the chest. No evidence of acute cardiopulmonary abnor mality. TECHNICAL DOCUMENTATION: JOB ID: [id number] [employer]- All Rights Reserved Reading location - IP/workstation name: [email or web address]
[2019-03-11 18:20] LABS: ABSOLUTE EOSINOPHILS # (AUTO) 0.2 10^3/uL (0.0-0.6); ABSOLUTE LYMPHOCYTES (AUTO) 1.7 10^3/uL (0.5-4.7); ABSOLUTE MONOCYTES (AUTO) 0.8 10^3/uL (0.1-1.4); ABSOLUTE NEUT (AUTO) 6.7 10^3/uL (1.7-8.2); BASOPHILS % (AUTO) 0.5 % (0-2); EOSINOPHILS % (AUTO) 1.6 % (0-6); HEMATOCRIT 40.9 % (37.9-51.0); LYMPHOCYTES % (AUTO) 18.5 % (13-45); MEAN CORPUSCULAR HEMOGLOBIN 30.6 pg (27.0-33.4); MEAN CORPUSCULAR HGB CONC 34.3 g/dL (32.0-36.0); MEAN CORPUSCULAR VOLUME 89 fl (80-97); MONOCYTES % (AUTO) 8.2 % (3-13); PLATELET COUNT 269 10^3/uL (150-450); RED BLOOD COUNT 4.57 10^6/uL (4.35-5.55); RED CELL DISTRIBUTION WIDTH 14.3 % (11.5-14.0); SEGMENTED NEUTROPHILS % (AUTO) 71.2 % (42-78); TOTAL CELLS COUNTED % (AUTO) 100 %; WHITE BLOOD COUNT 9.4 10^3/uL (4.0-10.5)
[2019-03-11 18:39] LABS: ALANINE AMINOTRANSFERASE 31 U/L (21-72); ALBUMIN 4.4 g/dL (3.5-5.0); ALKALINE PHOSPHATASE 158 U/L (38-126); ANION GAP 9 (5-19); ASPARTATE AMINO TRANSFERASE 24 U/L (17-59); BILIRUBIN,DIRECT 0.4 mg/dL (0.0-0.4); BILIRUBIN,TOTAL 0.7 mg/dL (0.2-1.3); BLOOD UREA NITROGEN 22 mg/dL (7-20); CALCIUM 9.7 mg/dL (8.4-10.2); CARBON DIOXIDE 31 mmol/L (22-30); CHLORIDE 100 mmol/L (98-107); GLUCOSE 91 mg/dL (75-110); POTASSIUM 4.3 mmol/L (3.6-5.0); SODIUM 140.3 mmol/L (137-145); TOTAL PROTEIN 7.5 g/dL (6.3-8.2)
--- NOTE | 2019-03-12 00:26 | EKG REPORT ---
SEVERITY:- ABNORMAL ECG - VENTRICULAR-PACED RHYTHM : Confirmed by: Aristeo Kendrick 12-Mar-2019 00:25:57
[2019-03-12] MEDS ORDERED: ASPIRIN 81 MG TABLET, CHEWABLE PO ONE (01:06)
--- NOTE | 2019-03-12 01:13 | ER Document Report ---
ED General - General Chief Complaint: Chest Pain Stated Complaint: CHEST PAIN Time Seen by Provider: 03/11/19 17:31 Primary Care Provider: SARAI DING MD [NO LOCAL MD] - Follow up as needed Mode of Arrival: Ambulatory Notes: Patient is a 74-year-old male with past medical history of coronary artery disease, hypertension, hyperlipidemia, presents with intermittent chest pain since 9 AM this morning. Describes it as a heavy pressure-like sensation over his left chest without radiation. States the pain went away after he took nitroglycerin. States that he has had intermittent chest discomfort since that time. Regards symptoms as being mild to moderate in intensity. Was instructed come to the emergency department [facility]. Denies any exacerbating or triggering factor. States that he does not typically have chest pain. Denies associated nausea, vomiting or shortness of breath. States his last stress test was greater than 1 year ago. Last cardiac catheterization was in 2017. No current chest pain. TRAVEL OUTSIDE OF THE [place] IN LAST 30 DAYS: No - Related Data Allergies/Adverse Reactions: No Known Allergies Allergy (Verified 03/11/19 16:00) Past Medical History - General Information source: Patient - Social History Smoking Status: Never Smoker Frequency of alcohol use: Rare Drug Abuse: None Lives with: Family Family History: Reviewed & Not Pertinent Patient has suicidal ideation: No Patient has homicidal ideation: No - Past Medical History Cardiac Medical History: Reports: Hx Atrial Fibrillation, Hx Hypercholesterolemia, Hx Hypertension Endocrine Medical History: Reports: Hx Diabetes Mellitus Type 2 Renal/ Medical History: Denies: Hx Peritoneal Dialysis Past Surgical History: Reports: Hx Cardiac Catheterization, Hx Cardiac Surgery - pacemaker 2018, Hx Coronary Artery Bypass Graft, Hx Coronary Stent - X3, Hx Pacemaker - Immunizations Hx Diphtheria, Pertussis, Tetanus Vaccination: Yes Review of Systems - Review of Systems Notes: Constitutional: Negative for fever. HENT: Negative for sore throat. Eyes: Negative for visual changes. Cardiovascular: Positive for chest pain. Respiratory: Negative for shortness of breath. Gastrointestinal: Negative for abdominal pain, vomiting or diarrhea. Genitourinary: Negative for dysuria. Musculoskeletal: Negative for back pain. Skin: Negative for rash. Neurological: Negative for headaches, weakness or numbness. 10 point ROS negative except as marked above and in HPI. Physical Exam - Vital signs Vitals: Temp Pulse Resp BP Pulse Ox 97.9 F 84 16 145/82 H 96 03/11/19 16:19 03/11/19 16:19 03/11/19 16:19 03/11/19 16:19 03/11/19 16:19 Interpretation: Hypertensive Notes: PHYSICAL EXAMINATION: GENERAL: Well-appearing, well-nourished and in no acute distress. HEAD: Atraumatic, normocephalic. EYES: Pupils equal round and reactive to light, extraocular movements intact, sclera anicteric, conjunctiva are normal. ENT: nares patent, oropharynx clear without exudates. Moist mucous membranes. NECK: Normal range of motion, supple without lymphadenopathy LUNGS: Breath sounds clear to auscultation bilaterally and equal. No wheezes rales or rhonchi. HEART: Regular rate and rhythm without murmurs ABDOMEN: Soft, nontender, normoactive bowel sounds. No guarding, no rebound. No masses appreciated. EXTREMITIES: Normal range of motion, no pitting or edema. No cyanosis. NEUROLOGICAL: No focal neurological deficits. Moves all extremities spontaneously and on command. PSYCH: Normal mood, normal affect. SKIN: Warm, Dry, normal turgor, no rashes or lesions noted. Course - Re-evaluation Re-evalutation: 03/12/19 01:12 Presentation of chest pain in an otherwise well appearing patient. EKG shows paced rhythm, initial troponin negative. However heart score is elevated given patient's risk factors, age and EKG. PE also seems unlikely given clinical history, absence of tachycardia or dyspnea. Wells score is 0. CXR without evidence of pneumothorax or pneumonia. No widened mediastinum. Aortic dissection also seems unlikely given history, symmetric pulses, CXR, and vitals. Given elevated heart score discussed with the hospitalist Dr. Tripathi who has accepted patient for observation. HEART Score: History0 ECG1 Age2 Risk Factors2 Troponin1 Total: 5 - Vital Signs Vital signs: Temp Pulse Resp BP Pulse Ox 97.8 F 84 14 155/100 H 99 03/11/19 23:16 03/11/19 16:19 03/11/19 23:16 03/11/19 23:16 03/11/19 23:22 - Laboratory Result Diagrams: 03/11/19 17:57 03/11/19 17:57 Laboratory results interpreted by me: 03/11/19 03/11/19 17:57 17:57 RDW 14.3 H Carbon Dioxide 31 H BUN 22 H Alkaline Phosphatase 158 H - Diagnostic Test Radiology reviewed: Image reviewed, Reports reviewed Radiology results interpreted by me: 03/12/19 01:13 Chest x-ray: No acute infiltrate or pneumothorax - EKG Interpretation by Me Additional EKG results interpreted by me: 03/12/19 01:14 Ventricular paced rhythm, unchanged from previous. Rate 96. Discharge - Discharge Clinical Impression: Chest pain Qualifiers: Chest pain type: unspecified Qualified Code(s): R07.9 - Chest pain, unspecified Condition: Fair Disposition: ADMITTED OBSERVATION Admitting Provider: Bhumi (Hospitalist) Unit Admitted: Telemetry Referrals: SARAI DING MD [NO LOCAL MD] - Follow up as needed
[2019-03-12] MEDS ORDERED: ONDANSETRON HCL INJ/PF 4 MG/2 ML SDV IV PRN (01:33)
[2019-03-12] MEDS ORDERED: MAGNESIUM HYDROXIDE SUSP 30 ML UDCUP PO PRN (01:33)
[2019-03-12] MEDS ORDERED: MAG HYDROX/AL HYDROX/SIMETH SUSP 30 ML UDCUP PO PRN (01:33)
[2019-03-12] MEDS ORDERED: NITROGLYCERIN 0.4 MG/TAB 25 TAB/BOTTLE SL PRN (01:37)
[2019-03-12] MEDS ORDERED: MORPHINE SULFATE 10 MG/ML INJ IV PRN (01:37)
[2019-03-12] MEDS ORDERED: ACETAMINOPHEN 325 MG TABLET PO PRN (01:37)
--- NOTE | 2019-03-12 03:37 | ADVANCED CARE ---
- Diagnosis (1) Chest pain Diagnosis Current: Yes (2) CAD (coronary artery disease) Diagnosis Current: Yes (3) HTN (hypertension) Diagnosis Current: Yes (4) HLD (hyperlipidemia) Diagnosis Current: Yes (5) Chronic atrial fibrillation Diagnosis Current: Yes (6) Chronic anticoagulation Diagnosis Current: Yes Attendance: The patient and myself Resuscitation Status: Full Code Discussion: Patient has determined that he wishes to remain as full code resuscitation status for his current visit in the event of a cardiac or respiratory arrest. Additionally he has named Dawsonlashay Norris as his surrogate medical decision maker. Care Planning Goals: 1. Patient will be full CODE STATUS. 2. Dawson Norris is the patient's designated surrogate medical decision maker. Document(s) Completed: The following information will be entered into the patient's permanent medical record and current medical record and orders with EMR entry: 1. Patient will be full CODE STATUS. 2. Dawson Norris is the patient's designated surrogate medical decision maker. Time Spent: 7 minutes
[2019-03-12] MEDS ORDERED: HYDRALAZINE HCL INJ/PF 20 MG/1 ML SDV IV PRN (03:44)
--- NOTE | 2019-03-12 03:46 | PDOC H&P ---
History of Present Illness Admission Date/PCP: 03/12/2019 01:08 [facility] Patient complains of: Chest pain History of Present Illness: JOSE NG is a 74 year old male who presented to the emergency room with a 2 day history of chest pain. He admits 2 brief episodes of constant, moderate, nonradiating crushing pressure-like pain lasting for less than 2 minutes, resolving completely in less than 1 minute after using NTG SL X1. He admits associated symptoms of mild palpitations (irregular heartbeat) and brief feelings of lightheadedness. He admits prior similar episodes with angina/CAD in the past. He has not identified any additional aggravating or ameliorating factors for his chest pain. In the emergency room he was found to have negative cardiac enzymes x2 and an EKG that showed no evidence of acute myocardial ischemia or injury. He was subsequently placed in observation status for further evaluation and treatment. Past Medical History Cardiac Medical History: Reports: Atrial Fibrillation, Coronary Artery Disease, Myocardial Infarction, Hyperlipidema, Hypertension, Peripheral Vascular Disease Pulmonary Medical History: Denies: Asthma, Chronic Obstructive Pulmonary Disease (COPD) EENT Medical History: Denies: Cataracts, Ears - Hearing aids Neurological Medical History: Denies: Multiple Sclerosis, Seizures Endocrine Medical History: Reports: Diabetes Mellitus Type 2 Denies: Diabetes Mellitus Type 1, Hyperthyroidism, Hypothyroidism Renal/ Medical History: Reports: Other - Benign prostatic hypertrophy Denies: Chronic Kidney Disease Malignancy Medical History: Reports: None GI Medical History: Denies: Cirrhosis, Hepatitis Musculoskeltal Medical History: Denies: Arthritis, Gout Skin Medical History: Denies: Eczema, Psoriasis Psychiatric Medical History: Denies: Alcohol Dependency, Substance Abuse, Tobacco Dependency Traumatic Medical History: Reports: None Hematology: Denies: Anemia, Bleeding Tendencies Infectious Medical History: Reports: None Past Surgical History Past Surgical History: Reports: Cardiac Catheterization, Coronary Artery Bypass Graft, Coronary Stent - X3, Pacemaker, Vascular Surgery - Abdominal aortic aneur ysm repair Social History Information Source: Patient Lives with: Family Smoking Status: Never Smoker Frequency of Alcohol Use: None Hx Recreational Drug Use: No Drugs: None Hx Prescription Drug Abuse: No - Advance Directive Resuscitation Status: Full Code Surrogate healthcare decision maker:: Dawson Myrna Family History Family History: CAD, CVA, DM, Hypertension, Malignancy Parental Family History Reviewed: Yes Children Family History Reviewed: Yes Sibling(s) Family History Reviewed.: Yes Medication/Allergy Home Medications: Gemfibrozil 600 mg PO DAILY 08/17/15 Gemfibrozil 600 mg PO DAILY 08/17/15 Lisinopril [Zestril] 2.5 mg PO DAILY 08/17/15 Omeprazole 20 mg PO DAILY 08/17/15 Terazosin HCl 2 mg PO HSP PRN 08/17/15 Warfarin Sodium 5 mg PO DAILY 08/17/15 Lidocaine [Lidoderm 5% (700 mg) Transdermal Patch] 1 patch TP DAILY #30 adh..patch 09/10/15 Tramadol HCl [Ultram 50 mg Tablet] 50 mg PO ASDIR PRN #20 tablet 09/10/15 Isosorbide Mononitrate [Imdur 30 mg Tablet.er] 30 mg PO DAILY #30 tab.er.24h 02/21/18 Cephalexin Monohydrate [Keflex 500 mg Capsule] 500 mg PO TID #21 capsule 07/13/18 Benzonatate [Tessalon Perles 100 mg Capsule] 100 mg PO ASDIR PRN #30 capsule Doxycycline Hyclate 100 mg PO BID #14 tablet. 10/06/18 Allergies/Adverse Reactions: No Known Allergies Allergy (Verified 03/11/19 16:00) Review of Systems Constitutional: ABSENT: chills, fever(s) Eyes: ABSENT: visual disturbances, other - Eye pain Ears: ABSENT: hearing changes, other - Ear pain Nose, Mouth, and Throat: ABSENT: mouth pain, sore throat Cardiovascular: PRESENT: as per HPI, chest pain, palpitations, other - Lightheaded. ABSENT: dyspnea on exertion, edema, orthropnea Respiratory: ABSENT: cough, dyspnea Gastrointestinal: ABSENT: abdominal pain, constipation, diarrhea, nausea, vomiting Genitourinary: ABSENT: dysuria, hematuria Musculoskeletal: ABSENT: back pain, joint swelling, muscle weakness Integumentary: ABSENT: pruritus, rash Neurological: ABSENT: confusion, convulsions, focal weakness, memory loss, syncope Psychiatric: ABSENT: anxiety, depression Endocrine: ABSENT: cold intolerance, heat intolerance Hematologic/Lymphatic: ABSENT: easy bleeding, easy bruising Physical Exam Vital Signs: Temp Pulse Resp BP Pulse Ox 97.8 F 84 14 155/100 H 99 03/11/19 23:16 03/11/19 16:19 03/11/19 23:16 03/11/19 23:16 03/11/19 23:22 Intake & Output 03/10/19 03/11/19 03/12/19 23:59 23:59 23:59 Weight 90 kg General appearance: PRESENT: no acute distress, cooperative Head exam: PRESENT: atraumatic, normocephalic Eye exam: PRESENT: conjunctiva pink. ABSENT: conjunctival injection, scleral icterus Ear exam: PRESENT: normal external ear exam. ABSENT: bleeding, drainage Mouth exam: PRESENT: dry mucosa, neck supple Neck exam: ABSENT: JVD, thyromegaly, tracheal deviation Respiratory exam: PRESENT: clear to auscultation germain, symmetrical, unlabored Cardiovascular exam: PRESENT: RRR. ABSENT: clicks, gallop, rubs Pulses: PRESENT: normal radial pulses, normal dorsalis pedis pul Vascular exam: PRESENT: normal capillary refill. ABSENT: pallor GI/Abdominal exam: PRESENT: hernia - Right inguinal hernia, normal bowel sounds, soft Rectal exam: PRESENT: deferred Extremities exam: ABSENT: joint swelling, pedal edema, tenderness Musculoskeletal exam: PRESENT: full ROM, normal inspection Neurological exam: PRESENT: alert, awake, oriented to person, oriented to place, oriented to time, oriented to situation, CN II-XII grossly intact. ABSENT: motor sensory deficit Psychiatric exam: PRESENT: appropriate affect, normal mood Skin exam: PRESENT: dry, intact, warm. ABSENT: jaundice, rash, urticaria Results Laboratory Results: 03/11/19 17:57 03/11/19 17:57 03/11/19 03/11/19 17:57 17:57 WBC 9.4 RBC 4.57 Hgb 14.0 Hct 40.9 MCV 89 MCH 30.6 MCHC 34.3 RDW 14.3 H Plt Count 269 Seg Neutrophils % 71.2 Lymphocytes % 18.5 Monocytes % 8.2 Eosinophils % 1.6 Basophils % 0.5 Absolute Neutrophils 6.7 Absolute Lymphocytes 1.7 Absolute Monocytes 0.8 Absolute Eosinophils 0.2 Absolute Basophils 0.0 Sodium 140.3 Potassium 4.3 Chloride 100 Carbon Dioxide 31 H Anion Gap 9 BUN 22 H Creatinine 0.95 Est GFR ( Amer) > 60 Est GFR (Non-Af Amer) > 60 Glucose 91 Calcium 9.7 Total Bilirubin 0.7 AST 24 ALT 31 Alkaline Phosphatase 158 H Total Protein 7.5 Albumin 4.4 03/11/19 17:57 Troponin I < 0.012 Impressions: Chest X-Ray 03/11/19 17:31 IMPRESSION: Stable radiographic appearance of the chest. No evidence of acute cardiopulmonary abnormality. Assessment and Plan - Diagnosis (1) Chest pain Qualifiers: Chest pain type: unspecified Qualified Code(s): R07.9 - Chest pain, unspecified Is this a current diagnosis for this admission?: Yes Plan: Patient's chest pain will be evaluated with serial cardiac enzymes and EKGs. His pain will be treated with morphine sulfate 2 to 4 mg IV every 2 hours on a as needed basis per sliding scale. Patient may also receive nitroglycerin sublingual as needed for chest pain. A cardiology consultation with Dr. Graham will be obtained regarding further appropriate work-up. A cardiac stress test is arranged such that if Dr. Graham approves of that diagnostic tool no days will be lost in the patient's care. (2) CAD (coronary artery disease) Qualifiers: Coronary Disease-Associated Artery/Lesion type: [place] artery [place] vs. transplanted heart: [place] heart Associated angina: with stable angina Qualified Code(s): I25.118 - Atherosclerotic heart disease of [place] coronary artery with other forms of angina pectoris Is this a current diagnosis for this admission?: Yes Plan: Patient be continued on his current cardiac medical regimen. Evaluation of his chest pain is also part of the evaluation of his coronary artery disease. (3) HTN (hypertension) Qualifiers: Hypertension type: essential hypertension Qualified Code(s): I10 - Essential (primary) hypertension Is this a current diagnosis for this admission?: Yes Plan: Patient will be maintained on his current antihypertensive regiment. Vital signs will be monitored closely throughout his hospital course. Hydralazine 20 mg IV every 4 hours and metoprolol 5 mg IV every 4 hours will be used to control systolic blood pressure greater than 160 and/or diastolic blood pressure greater than 100. (4) HLD (hyperlipidemia) Qualifiers: Hyperlipidemia type: unspecified Qualified Code(s): E78.5 - Hyperlipidemia, unspecified Is this a current diagnosis for this admission?: Yes Plan: The patient will be maintained on his current lipid therapy regiment. A lipid profile will be obtained to assess the efficacy of his current therapy. (5) Chronic atrial fibrillation Is this a current diagnosis for this admission?: Yes Plan: Patient will be maintained on his current regimen for atrial fibrillation. He will be on threat monitoring analyst throughout his hospital course. (6) Chronic anticoagulation Is this a current diagnosis for this admission?: Yes Plan: Patient be continued on his current Eliquis therapy for chronic atrial fibrillation. - Time Time Spent with patient: 25-34 minutes Medications reviewed and adjusted accordingly: Yes Anticipated discharge: Home Within: within 36 hours - Inpatient Certification Based on my medical assessment, after consideration of the patient's comorbidities, presenting symptoms, or acuity I expect that the services needed warrant INPATIENT care.: No I certify that my determination is in accordance with my understanding of Medicare's requirements for reasonable and necessary INPATIENT services [42 CFR 412.3e].: No Medical Necessity: Need Close Monitoring Due to Risk of Patient Decompensation, Need For Continuous Telemetry Monitoring, Need for Pain Control, Risk of Complication if Not Cared For in Hospital
[2019-03-12] MEDS ORDERED: METOPROLOL TARTRATE PF/INJ 5 MG/5 ML SDV IV PRN (04:09)
[2019-03-12 07:06] LABS: CREATINE KINASE MB 1.11 ng/mL (<4.55)
[2019-03-12 07:12] LABS: TROPONIN I < 0.012 ng/mL
[2019-03-12] MEDS ORDERED: DOCUSATE SODIUM 100 MG CAPSULE PO SCH (10:00)
[2019-03-12] MEDS ORDERED: APIXABAN 5 MG TABLET PO SCH (10:00)
[2019-03-12] MEDS ORDERED: FAMOTIDINE 20 MG TABLET PO SCH (10:00)
[2019-03-12] MEDS ORDERED: REGADENOSON INJ 0.4 MG/5 ML DISP.SYRIN IV ONE (10:33)
[2019-03-12] MEDS ORDERED: (PENDING PHARMACY ID) (Acetaminophen [Tylenol Extra Strength 500 Mg Tablet] 2 TAB) PO PRN (14:02)
[2019-03-12] MEDS ORDERED: CARVEDILOL 3.125 MG TABLET PO ONE (14:04)
[2019-03-12] MEDS ORDERED: LISINOPRIL 10 MG TABLET PO ONE (14:04)
[2019-03-12 14:47] LABS: CREATINE KINASE MB 1.09 ng/mL (<4.55)
[2019-03-12 14:49] LABS: TROPONIN I < 0.012 ng/mL
--- NOTE | 2019-03-12 14:53 | EKG REPORT ---
SEVERITY:- ABNORMAL ECG - AFIB/FLUTTER AND VENTRICULAR-PACED RHYTHM : Confirmed by: Aristeo Kendrick 12-Mar-2019 14:53:01
[2019-03-12] MEDS ORDERED: PANTOPRAZOLE SODIUM 20 MG TABLET.DR PO SCH (15:00)
[2019-03-12] MEDS ORDERED: LISINOPRIL 10 MG TABLET PO SCH (15:00)
[2019-03-12 15:25] VITALS: BP 139/74
[2019-03-12] MEDS ORDERED: METFORMIN HCL 500 MG TABLET PO SCH (17:00)
--- NOTE | 2019-03-12 18:45 | PDOC DISCHARGE SUMMARY ---
General - Admit/Disc Date/PCP Admission Date/Primary Care Provider: 03/12/19 01:53 [facility] Discharge Date: 03/12/19 - Discharge Diagnosis (1) Chest pain Is this a current diagnosis for this admission?: Yes Summary: No further episodes during admission. EKG shows ventricularly paced rhythm. Chest x-ray is benign. Troponins negative x4 Cardiolite stress test completed; formalize report pending. However I did speak with Dr. Graham regarding test results. Dr. Graham reports that the patient has no reversible ischemia but is found to have a scar/PA to the basal and mid inferior wall, scar to the distal inferolateral wall, and LVEF of approximately 30 to 35%. Discussed with Dr. Graham prior to discharge; recommends the patient follow- up with his established acetylene torch solderer, Dr. Paul at [facility], within 1 to 2 weeks for echocardiogram. Continue outpatient medication regiment of lisinopril, hydrochlorothiazide, carvedilol, isosorbide, atorvastatin, aspirin and Eliquis therapy. Patient was advised of the importance to follow-up with his acetylene torch solderer as recommended above. He is encouraged to return to emergency department as needed for concerning symptoms. (2) CAD (coronary artery disease) Is this a current diagnosis for this admission?: Yes Summary: Evaluation management as above. Continue home dose lisinopril/HCTZ, carvedilol, isosorbide, atorvastatin, aspirin, and Eliquis. (3) Chronic atrial fibrillation Is this a current diagnosis for this admission?: Yes Summary: Rate controlled. Continue home medications as above. (4) Chronic anticoagulation Is this a current diagnosis for this admission?: Yes Summary: Continue current Eliquis therapy for chronic atrial fibrillation. (5) HLD (hyperlipidemia) Is this a current diagnosis for this admission?: Yes Summary: Continue cardiac diet and home dose atorvastatin. (6) HTN (hypertension) Is this a current diagnosis for this admission?: Yes Summary: Cardiac diet. Continue home medication regiment as above. - Additional Information Resuscitation Status: Full Code Discharge Diet: Cardiac, Diabetic Discharge Activity: Activity As Tolerated, Balance Activity w/Rest, Weigh Daily Home Medications: Acetaminophen [Tylenol Extra Strength 500 mg Tablet] 2 tab PO DAILYP PRN 03/12/19 Apixaban [Eliquis 5 mg Tablet] 5 mg PO BID 03/12/19 Aspirin [Aspirin 81 mg Chewable Tablet] 81 mg PO DAILY 03/12/19 Atorvastatin Calcium [Lipitor 80 mg Tablet] 80 mg PO QHS 03/12/19 Carvedilol [Coreg 3.125 mg Tablet] 3.125 mg PO Q12 03/12/19 Hydrochlorothiazide [Hydrodiuril 25 mg Tablet] 25 mg PO DAILY 03/12/19 Isosorbide Mononitrate [Imdur 30 mg Tablet.er] 30 mg PO DAILY 03/12/19 Lisinopril [Prinivil 40 mg Tablet] 40 mg PO DAILY 03/12/19 Metformin HCl [Glucophage 500 mg Tablet] 500 mg PO BIDBS 03/12/19 Multivitamin [Tab-A-Speedy (Multiple Vitamin) Tablet] 1 tab PO DAILY 03/12/19 Nitroglycerin [Nitrostat 0.4 mg (1/150 Gr) Tabs 25/Bottle] 1 tab SL Q5MP PRN 03/12/19 Omeprazole 20 mg PO Q6AM 03/12/19 Tamsulosin HCl [Flomax 0.4 mg Cap.sr] 0.4 mg PO DAILY 03/12/19 History of Present Illness History of Present Illness: Per H&P by Dr. Tripathi: JOSE NG is a 74 year old male who presented to the emergency room with a 2 day history of chest pain. He admits 2 brief episodes of constant, moderate, nonradiating crushing pressure-like pain lasting for less than 2 minutes, resolving completely in less than 1 minute after using NTG SL X1. He admits associated symptoms of mild palpitations (irregular heartbeat) and brief feelings of lightheadedness. He admits prior similar ep isodes with angina/CAD in the past. He has not identified any additional aggravating or ameliorating factors for his chest pain. In the emergency room he was found to have negative cardiac enzymes x2 and an EKG that showed no evidence of acute myocardial ischemia or injury. He was subsequently placed in observation status for further evaluation and treatment. Physical Exam Vital Signs: Temp Pulse Resp BP Pulse Ox 98.8 F 74 16 139/74 H 98 03/12/19 15:23 03/12/19 15:23 03/12/19 15:23 03/12/19 15:23 03/12/19 15:23 Intake & Output 03/11/19 03/12/19 03/13/19 06:59 06:59 06:59 Intake Total 240 Balance 240 Weight 90 kg General appearance: PRESENT: no acute distress, cooperative, hard of hearing - Hearing aids bilaterally, well-developed, well-nourished Head exam: PRESENT: atraumatic, normocephalic Eye exam: PRESENT: conjunctiva pink, EOMI, PERRLA. ABSENT: scleral icterus Ear exam: PRESENT: normal external ear exam Mouth exam: PRESENT: moist, tongue midline Neck exam: ABSENT: carotid bruit, JVD, lymphadenopathy, thyromegaly Respiratory exam: PRESENT: clear to auscultation germain, symmetrical, unlabored. ABSENT: rales, rhonchi, wheezes Cardiovascular exam: PRESENT: irregular rhythm, +S1, +S2. ABSENT: diastolic murmur, rubs, systolic murmur Pulses: PRESENT: normal dorsalis pedis pul Vascular exam: PRESENT: normal capillary refill GI/Abdominal exam: PRESENT: normal bowel sounds, soft. ABSENT: distended, guarding, mass, organolmegaly, rebound, tenderness Rectal exam: PRESENT: deferred Extremities exam: PRESENT: full ROM. ABSENT: calf tenderness, clubbing, pedal edema Musculoskeletal exam: PRESENT: ambulatory Neurological exam: PRESENT: alert, awake, oriented to person, oriented to place, oriented to time, oriented to situation, CN II-XII grossly intact. ABSENT: motor sensory deficit Psychiatric exam: PRESENT: appropriate affect, normal mood. ABSENT: homicidal ideation, suicidal ideation Skin exam: PRESENT: dry, intact, warm. ABSENT: cyanosis, rash Results Laboratory Results: 03/11/19 17:57 03/11/19 17:57 03/11/19 03/11/19 17:57 17:57 WBC 9.4 RBC 4.57 Hgb 14.0 Hct 40.9 MCV 89 MCH 30.6 MCHC 34.3 RDW 14.3 H Plt Count 269 Seg Neutrophils % 71.2 Lymphocytes % 18.5 Monocytes % 8.2 Eosinophils % 1.6 Basophils % 0.5 Absolute Neutrophils 6.7 Absolute Lymphocytes 1.7 Absolute Monocytes 0.8 Absolute Eosinophils 0.2 Absolute Basophils 0.0 Sodium 140.3 Potassium 4.3 Chloride 100 Carbon Dioxide 31 H Anion Gap 9 BUN 22 H Creatinine 0.95 Est GFR ( Amer) > 60 Est GFR (Non-Af Amer) > 60 Glucose 91 Calcium 9.7 Total Bilirubin 0.7 AST 24 ALT 31 Alkaline Phosphatase 158 H Total Protein 7.5 Albumin 4.4 03/11/19 03/12/19 03/12/19 17:57 01:15 01:15 Creatine Kinase 46 L CK-MB (CK-2) Troponin I < 0.012 < 0.012 03/12/19 03/12/19 03/12/19 01:15 06:15 06:15 Creatine Kinase 45 L CK-MB (CK-2) 1.33 1.11 Troponin I Cancelled < 0.012 03/12/19 03/12/19 13:40 13:40 Creatine Kinase 50 L CK-MB (CK-2) 1.09 Troponin I < 0.012 Impressions: Chest X-Ray 03/11/19 17:31 IMPRESSION: Stable radiographic appearance of the chest. No evidence of acute cardiopulmonary abnormality. Qualifiers - * PATIENT BEING DISCHARGED WITH ANY OF THE FOLLOWING DIAGNOSIS: No Acute Heart Failure - Is this a Heart Failure Patient?: Yes Documentation of LVEF assessment?: Planned for after discharge LVEF < 40%?: Yes-if yes answer questions a through e a) Discharged on ACEI?: Yes b) Discharges on ARB?: No-document contraindications - On lisinopril c) Discharged on ARNI?: No-Document Contraindications Reason(s) not discharged on ARNI: Other - Defer to primary acetylene torch solderer d) Discharged on evidence-based Beta gisselle(carvedilol, sustained release metoprolol succinate, or bisoprolol)?: Yes e) For LVEF <35%, discharged on Aldosterone antagonist?: N/A (LVEF > or = 35%) 3. Anticoagulant therapy for permanect/persistent/paraoxysmal Afib or Aflutter: Yes Plan Discharge Plan: Follow-up with primary care provider within 1 week. Follow-up with established acetylene torch solderer, Dr. Bridger Paul, within 1 to 2 weeks. Recommend echocardiogram at follow-up appointment. Take medications as prescribed; there have been no medication adjustments this visit. Return to the emergency department as needed for concerning symptoms Time Spent: Greater than 30 Minutes
--- NOTE | 2019-03-12 19:25 | DRAGON STRESS TEST REPORT ---
Intravenous Lexiscan Cardiolite stress test using single photon emmision computerized tomography. Date of procedure: 03/12/2019. Ordering Provider: Dr. Allen Garcia. Patient's status: In the Patient. Indication: Chest pain in a patient with history of coronary artery disease.. Coronary risk factors: Age, diabetes mellitus, and hypertension. Resting EKG: Atrial fibrillation with ventricular paced rhythm. Stress EKG: Non diagnostic of ischemia due to ventricular paced rhythm. Patient had no chest pain or discomfort, and there were no arrhythmias seen. Reason for termination: Protocol. Conclusions: Normal EKG and hemodynamic response to IV Lexiscan. Nuclear data: At rest the patient was given 13.35 millicuries of technetium 99m sestamibi injected intravenously. As per protocol rest non gated SPECT images were obtained. Subsequently the patient was given intravenous Lexiscan at a dose of 0.4 mg in 5 mL intravenously, followed by flush with normal saline. Subsequently the stress dose of 40.8 millicuries of technetium 99m sestamibi was injected intravenously. As per protocol stress gated images were obtained. Nuclear interpretation: Review of images showed that there is a perfusion defect in both the rest and stress images involving the basal inferior, the mid inferior, and the distal inferolateral hayes. These areas had diminished motion contraction and thickening by gated study. This is consistent with prior myocardial infarction. The rest of the segments of the myocardium had normal perfusion at rest, and normal perfusion post stress with IV Lexiscan. The rest of the segments of the myocardium had normal thickening by gated study. The left ventricle in both the rest and stress images was dilated, and there was global hypokinesis consistent with ischemic cardia myopathy. T. I D. ratio was normal at 1.13. There is no transient ischemic dilatation of the left ventricle. Computer read rest, and stress left ventricular ejection fraction were 35 %, and 30 %, respectively. Conclusion: 1. There is no scintigraphic evidence of Lexiscan induced myocardial ischemia. 2. There is scintigraphic evidence of myocardial infarction/scar involving the mid inferior, the basal inferior, and the distal inferolateral hayes. 3 there is evidence of ischemic/dilated cardiomyopathy with a severely reduced LV ejection fraction.. Recommendations: 1.Aggressive treatment of coronary artery disease and cardiomyopathy. 2. Check echo for LV ejection fraction correlation. 3. Aggressive risk factor modification, and treating the underlying co- morbidities. MTDD
[2019-03-12] MEDS ORDERED: ATORVASTATIN CALCIUM 80 MG TABLET PO SCH (22:00)
[2019-03-12] MEDS ORDERED: CARVEDILOL 3.125 MG TABLET PO SCH (22:00)
[2019-03-13] MEDS ORDERED: ASPIRIN 81 MG TABLET, CHEWABLE PO SCH (10:00)
[2019-03-13] MEDS ORDERED: MULTIVITAMIN TABLET PO SCH (10:00)
[2019-03-13] MEDS ORDERED: ISOSORBIDE MONONITRATE 30 MG TAB.ER.24H PO SCH (10:00)
[2019-03-13] MEDS ORDERED: TAMSULOSIN HCL 0.4 MG CAP.SR.24H PO SCH (10:00)
[2019-03-13] MEDS ORDERED: HYDROCHLOROTHIAZIDE 25 MG TABLET PO SCH (10:00)
== END 2019-03-12 16:06 | disposition home or self-care (01) ==
LOC: ER 15:59 → EH 03-12 01:53 → 4N 03-12 03:07
PROVIDERS: ADMIT Emergency Medicine; ATTEND Emergency Medicine
DX: R07.89 Other chest pain (principal); I25.118 Atherosclerotic heart disease of native coronary artery with other forms of angina pectoris; I48.2 Chronic atrial fibrillation; E78.5 Hyperlipidemia, unspecified; I10 Essential (primary) hypertension; N40.0 Benign prostatic hyperplasia without lower urinary tract symptoms; E11.51 Type 2 diabetes mellitus with diabetic peripheral angiopathy without gangrene; I25.2 Old myocardial infarction; Z79.02 Long term (current) use of antithrombotics/antiplatelets; K40.90 Unilateral inguinal hernia, without obstruction or gangrene, not specified as recurrent; Z79.82 Long term (current) use of aspirin; Z79.899 Other long term (current) drug therapy; Z79.84 Long term (current) use of oral hypoglycemic drugs; Z98.890 Other specified postprocedural states; Z95.1 Presence of aortocoronary bypass graft; Z95.5 Presence of coronary angioplasty implant and graft; Z95.0 Presence of cardiac pacemaker; Z82.49 Family history of ischemic heart disease and other diseases of the circulatory system
CPT/HCPCS: 93005 ×2; 99285; 36415 ×2; 82553; 82550; 85025; 80053; 84484 ×2; 93017; 71046; 78452; 93010 ×2; G0378 ×2; A9500; J2785; J0360; Q9969; J3490

== ENCOUNTER 2019-11-10 13:23 | Observation (INO) | payer OTHER, MEDICARE ==
--- NOTE | 2019-11-10 13:48 | ER Document Report ---
ED Medical Screen (RME) - General Chief Complaint: Chest Pain Stated Complaint: CHEST PAIN Time Seen by Provider: 11/10/19 13:36 Primary Care Provider: CLARISSE ZHANG MD [Primary Care Provider] - Follow up as needed Notes: Patient is a 74-year-old male with a history of open heart surgery with 3 stents, hypertension, possible congestive heart failure, pacemaker, type 2 diabetes who presents emergency department with a chief complaint of chest pain. Patient reports he did have eye surgery on October 28. Patient reports that while he was laying flat during his procedure he did develop chest pain. Patient reports he was seen at [facility] emergency department and discharged home. Patient reports today developing some left-sided chest pressure. Patient reports this started around 7 AM this morning. Patient did take a sublingual nitro at that time which did help. Patient reports the pain started to develop again around 10 AM. Patient reports he does see Dr. Zhang with the [facility], [place]. Patient reports some shortness of breath. TRAVEL OUTSIDE OF THE [place] IN LAST 30 DAYS: No - Related Data Allergies/Adverse Reactions: No Known Allergies Allergy (Verified 03/11/19 16:00) Past Medical History - Past Medical History Cardiac Medical History: Reports: Hx Atrial Fibrillation, Hx Coronary Artery Disease, Hx Heart Attack, Hx Hypercholesterolemia, Hx Hypertension, Hx Peripheral Vascular Disease Pulmonary Medical History: Denies: Hx Asthma, Hx COPD Neurological Medical History: Denies: Hx Seizures Endocrine Medical History: Reports: Hx Diabetes Mellitus Type 2. Denies: Hx Diabetes Mellitus Type 1, Hx Hyperthyroidism, Hx Hypothyroidism Renal/ Medical History: Denies: Hx Peritoneal Dialysis GI Medical History: Denies: Hx Cirrhosis, Hx Hepatitis Musculoskeltal Medical History: Denies Hx Arthritis, Denies Hx Gout Skin Medical History: Denies Hx Eczema, Denies Hx Psoriasis Infectious Medical History: Denies: Hx Hepatitis Past Surgical History: Reports: Hx Cardiac Catheterization, Hx Cardiac Surgery - pacemaker 2018, Hx Coronary Artery Bypass Graft, Hx Coronary Stent - X3, Hx Pacemaker, Hx Vascular Surgery - Abdominal aortic aneurysm repair - Immunizations Hx Diphtheria, Pertussis, Tetanus Vaccination: Yes Physical Exam - Respiratory Respiratory status: No respiratory distress Chest status: Nontender Breath sounds: Normal Chest palpation: Normal - Cardiovascular Rhythm: Regular Heart sounds: Normal auscultation, S1 appreciated, S2 appreciated Course - Re-evaluation Re-evalutation: 11/10/19 13:48 We will initiate a chest pain work-up. I have greeted and performed a rapid initial assessment of this patient. A comprehensive ED assessment and evaluation of the patient, analysis of test results and completion of the medical decision making process will be conducted by additional ED providers. Doctor's Discharge - Discharge Referrals: CLARISSE ZHANG MD [Primary Care Provider] - Follow up as needed
--- NOTE | 2019-11-10 14:07 | RADIOLOGY REPORT (SQ) ---
EXAM DESCRIPTION: CHEST 2 VIEWS COMPLETED DATE/TIME: 11/10/2019 1:57 pm REASON FOR STUDY: chest pain COMPARISON: 03/11/2019. EXAM PARAMETERS: NUMBER OF VIEWS: two views TECHNIQUE: Digital Frontal and Lateral radiographic views of the chest acquired. RADIATION DOSE: NA LIMITATIONS: none FINDINGS: LUNGS AND PLEURA: No opacities, masses or pneumothorax. No pleural effusion. MEDIASTINUM AND HILAR STRUCTURES: No masses or contour abnormalities. HEART AND VASCULAR STRUCTURES: Heart normal size. No evidence for failure. BONES: No acute findings. Degenerative changes in the spine. HARDWARE: Pacemaker, sternotomy wires, surgical clips. Stent in the abdomen. No OTHER: No other significant finding. IMPRESSION: NO ACUTE RADIOGRAPHIC FINDING IN THE CHEST. TECHNICAL DOCUMENTATION: JOB ID: [id number] 2010 [employer]- All Rights Reserved Reading location - IP/workstation name: [email or web address]
[2019-11-10 14:32] LABS: ABSOLUTE EOSINOPHILS # (AUTO) 0.1 10^3/uL (0.0-0.6); ABSOLUTE LYMPHOCYTES (AUTO) 1.5 10^3/uL (0.5-4.7); ABSOLUTE MONOCYTES (AUTO) 0.7 10^3/uL (0.1-1.4); ABSOLUTE NEUT (AUTO) 8.1 10^3/uL (1.7-8.2); BASOPHILS % (AUTO) 0.5 % (0-2); EOSINOPHILS % (AUTO) 1.1 % (0-6); HEMATOCRIT 34.5 % (37.9-51.0); LYMPHOCYTES % (AUTO) 14.4 % (13-45); MEAN CORPUSCULAR HEMOGLOBIN 32.2 pg (27.0-33.4); MEAN CORPUSCULAR HGB CONC 34.8 g/dL (32.0-36.0); MEAN CORPUSCULAR VOLUME 92 fl (80-97); MONOCYTES % (AUTO) 6.4 % (3-13); PLATELET COUNT 322 10^3/uL (150-450); RED BLOOD COUNT 3.74 10^6/uL (4.35-5.55); RED CELL DISTRIBUTION WIDTH 13.2 % (11.5-14.0); SEGMENTED NEUTROPHILS % (AUTO) 77.6 % (42-78); TOTAL CELLS COUNTED % (AUTO) 100 %; WHITE BLOOD COUNT 10.5 10^3/uL (4.0-10.5)
[2019-11-10 15:00] LABS: ALBUMIN 3.8 g/dL (3.5-5.0); ALKALINE PHOSPHATASE 129 U/L (38-126); ANION GAP 8 (5-19); ASPARTATE AMINO TRANSFERASE 24 U/L (17-59); BILIRUBIN,DIRECT 0.3 mg/dL (0.0-0.4); BILIRUBIN,TOTAL 0.7 mg/dL (0.2-1.3); BLOOD UREA NITROGEN 32 mg/dL (7-20); CALCIUM 9.5 mg/dL (8.4-10.2); CARBON DIOXIDE 32 mmol/L (22-30); CHLORIDE 100 mmol/L (98-107); GLUCOSE 87 mg/dL (75-110); POTASSIUM 4.1 mmol/L (3.6-5.0); TOTAL PROTEIN 7.1 g/dL (6.3-8.2)
[2019-11-10 15:08] LABS: APPEARANCE,URINE SLIGHTLY-CLOUDY; BILIRUBIN,URINE NEGATIVE (NEGATIVE); COLOR,URINE YELLOW; GLUCOSE, URINE NEGATIVE (NEGATIVE); KETONES,URINE NEGATIVE (NEGATIVE); LEUKOCYTE ESTERASE,URINE NEGATIVE (NEGATIVE); NITRITE,URINE NEGATIVE (NEGATIVE); PROTEIN,URINE NEGATIVE (NEGATIVE); URINE SPECIFIC GRAVITY 1.009; UROBILINOGEN,URINE NEGATIVE mg/dL (<2.0)
[2019-11-10] MEDS ORDERED: ASPIRIN 325 MG TABLET PO ONE (16:07)
--- NOTE | 2019-11-10 16:11 | ER Document Report ---
ED General - General Chief Complaint: Chest Pain Stated Complaint: CHEST PAIN Time Seen by Provider: 11/10/19 13:36 Primary Care Provider: CLARISSE ZHANG MD [NO LOCAL MD] - Follow up as needed Notes: 74-year-old male with history of hypertension, diabetes, 3 stents, open heart surgery, pacemaker presents for left-sided chest pain that started at 7 AM today that was relieved with nitro. Patient then had a second episode of chest pain around 10 AM and states he took nitro with improvement as well. Patient states now the chest pain is intermittent and lasts a few seconds. Denies any radiation, dyspnea, nausea/vomiting, or dizziness. Patient states similar episode approximately 10 days ago and was admitted to [facility] where he received an echo, EKG, and lab work and he was discharged. Patient states he d id have a stress test here at [place] in March 2019. TRAVEL OUTSIDE OF THE [place] IN LAST 30 DAYS: No - Related Data Allergies/Adverse Reactions: No Known Allergies Allergy (Verified 03/11/19 16:00) Past Medical History - Social History Smoking Status: Former Smoker Family History: CAD, CVA, DM, Hypertension, Malignancy Patient has suicidal ideation: No Patient has homicidal ideation: No - Past Medical History Cardiac Medical History: Reports: Hx Atrial Fibrillation, Hx Coronary Artery Disease, Hx Heart Attack, Hx Hypercholesterolemia, Hx Hypertension, Hx Peripheral Vascular Disease Pulmonary Medical History: Denies: Hx Asthma, Hx COPD Neurological Medical History: Denies: Hx Seizures Endocrine Medical History: Reports: Hx Diabetes Mellitus Type 2. Denies: Hx Diabetes Mellitus Type 1, Hx Hyperthyroidism, Hx Hypothyroidism Renal/ Medical History: Denies: Hx Peritoneal Dialysis GI Medical History: Denies: Hx Cirrhosis, Hx Hepatitis Musculoskeletal Medical History: Denies Hx Arthritis, Denies Hx Gout Skin Medical History: Denies Hx Eczema, Denies Hx Psoriasis Infectious Medical History: Denies: Hx Hepatitis Past Surgical History: Reports: Hx Cardiac Catheterization, Hx Cardiac Surgery - pacemaker 2018, Hx Coronary Artery Bypass Graft, Hx Coronary Stent - X3, Hx Pacemaker, Hx Vascular Surgery - Abdominal aortic aneurysm repair - Immunizations Hx Diphtheria, Pertussis, Tetanus Vaccination: Yes Review of Systems - Review of Systems Notes: Constitutional: Negative for fever. HENT: Negative for sore throat. Eyes: Negative for visual changes. Cardiovascular: Positive for chest pain. Respiratory: Negative for shortness of breath. Gastrointestinal: Negative for abdominal pain, vomiting or diarrhea. Genitourinary: Negative for dysuria. Musculoskeletal: Negative for back pain. Skin: Negative for rash. Neurological: Negative for headaches, weakness or numbness. 10 point ROS negative except as marked above and in HPI. Physical Exam - Vital signs Vitals: BP Pulse Ox 162/88 H 99 11/10/19 14:32 11/10/19 14:32 - Notes Notes: GENERAL: Well-appearing, well-nourished and in no acute distress. HEAD: Atraumatic, normocephalic. EYES: Extraocular movements intact, sclera anicteric, conjunctiva are normal. NECK: Normal range of motion, supple without lymphadenopathy or JVD. LUNGS: Breath sounds clear to auscultation bilaterally and equal. No wheezes rales or rhonchi. HEART: Regular rate and rhythm without murmurs, rubs or gallops. EXTREMITIES: Normal range of motion, no pitting or edema. No clubbing or cyanosis. NEUROLOGICAL: Cranial nerves II through XII grossly intact. Normal speech, normal gait. PSYCH: Normal mood, normal affect. SKIN: Warm, Dry, normal turgor, no rashes or lesions noted. Course - Re-evaluation Re-evalutation: 11/10/19 Pt is currently chest pain free. Pt took 1 aspirin 81 mg this morning. 11/10/19 16:13 Dr. Freeman did a nuclear stress test in March 2019. Recommended calling pt's orchid grower at [facility]. 11/10/19 16:23 Attempted to call [facility]. It is not open and there is no answering service. Discussed with attending who states to call hospitalist since orchid grower will be front desk agent tomorrow. 11/10/19 16:[address] Farias who states pt will go to [facility]. 11/10/19 16:47 Spoke to [facility] who accepted pt for admission. - Vital Signs Vital signs: Temp Pulse Resp BP Pulse Ox 156/96 H 98 11/10/19 15:01 11/10/19 15:01 - Laboratory Result Diagrams: 11/10/19 14:16 11/10/19 14:16 Laboratory results interpreted by me: 11/10/19 11/10/19 14:16 14:16 RBC 3.74 L Hgb 12.0 L Hct 34.5 L Carbon Dioxide 32 H BUN 32 H Alkaline Phosphatase 129 H Discharge - Discharge Clinical Impression: Chest pain Qualifiers: Chest pain type: unspecified Qualified Code(s): R07.9 - Chest pain, unspecified Condition: Stable Disposition: ADMITTED OBSERVATION Admitting Provider: Dinora (Hospitalist) - [facility] Unit Admitted: Telemetry Referrals: CLARISSE ZHANG MD [NO LOCAL MD] - Follow up as needed
--- NOTE | 2019-11-10 16:17 | EKG REPORT ---
SEVERITY:- ABNORMAL ECG - VENTRICULAR-PACED RHYTHM : Confirmed by: Paola Graham MD 10-Nov-2019 16:17:07
--- NOTE | 2019-11-10 16:17 | EKG REPORT ---
SEVERITY:- ABNORMAL ECG - VENTRICULAR-PACED COMPLEXES IVCD, CONSIDER ATYPICAL RBBB LVH WITH IVCD, LAD AND SECONDARY REPOL ABNRM : Confirmed by: Paola Graham MD 10-Nov-2019 16:17:10
[2019-11-10] MEDS ORDERED: ONDANSETRON HCL INJ/PF 4 MG/2 ML SDV IV PRN (17:22)
[2019-11-10] MEDS ORDERED: NITROGLYCERIN 0.4 MG/TAB 25 TAB/BOTTLE SL PRN (17:22)
[2019-11-10] MEDS ORDERED: MAG HYDROX/AL HYDROX/SIMETH SUSP 30 ML UDCUP PO PRN (17:22)
[2019-11-10] MEDS ORDERED: ACETAMINOPHEN 325 MG TABLET PO PRN (17:22)
[2019-11-10] MEDS ORDERED: HYDRALAZINE HCL INJ/PF 20 MG/1 ML SDV IV PRN (17:29)
[2019-11-10] MEDS ORDERED: ISOSORBIDE MONONITRATE 60 MG TAB.ER.24H PO ONE (17:29)
[2019-11-10] MEDS ORDERED: HYDRALAZINE HCL INJ/PF 20 MG/1 ML SDV IV ONE (17:29)
[2019-11-10] MEDS ORDERED: DEXTROSE 50%-WATER 25 GM/50 ML DISP.SYRIN IV PRN ×2 (17:44)
[2019-11-10] MEDS ORDERED: DEXTROSE 40% GEL 15 GM TUBE PO PRN ×2 (17:44)
[2019-11-10] MEDS ORDERED: GLUCAGON,HUMAN RECOMB 1 MG INJ IM PRN (17:44)
[2019-11-10] MEDS ORDERED: MORPHINE SULFATE 10 MG/ML INJ IV PRN (17:58)
[2019-11-10] MEDS ORDERED: TAMSULOSIN HCL 0.4 MG CAP.SR.24H PO SCH (18:00)
--- NOTE | 2019-11-10 18:05 | PDOC H&P ---
History of Present Illness Admission Date/PCP: 11/10/19 17:21 [facility] Patient complains of: chest pain History of Present Illness: JOSE NG is a 74 year old male with past medical history significant for CAD (CABG x3) pacemaker, AAA repair, chronically anticoagulated on Eliquis, Hypertension, hyperlipidemia, DM 2 who presented to the emergency department today for report of chest pain noted shortly after waking this morning that resolved a few minutes after taking sublingual nitroglycerin. He states that his chest pain recurred a couple of hours later, again requiring nitroglycerin. At both times, his chest pain occurred while at rest, was located left sternal border described as discomfort with left shoulder pressure. He denies associated symptoms. Of note, the patient was seen at [facility] ED 10 days ago for similar symptoms. He underwent serial troponins x4 and an echocardiogram at that visit. He was discharged with instructions to continue his home medications with the addition of Lasix 40 mg daily as needed for shortness of breath/edema and to follow-up with his established director of optimization. He has not yet seen his director of optimization. Evaluation in the emergency department today revealed hypertension (BP 190/100), remaining vital signs nml, mild anemia (Hgb 12), slightly elevated bicarb of 32 but otherwise unremarkable chemistry. EKG shows ventricular paced rhythm. CXR is negative for acute findings. Troponin is minimally increased 0.103-> 0.23. He is referred to the hospitalist service for admission and management of the sherron chávez stated complaints and findings. Past Medical History Cardiac Medical History: Reports: Atrial Fibrillation, Coronary Artery Disease, Myocardial Infarction, Hyperlipidema, Hypertension, Peripheral Vascular Disease Pulmonary Medical History: Reports: None EENT Medical History: Reports: Other - recent cornea replacement Neurological Medical History: Denies: Seizures Endocrine Medical History: Reports: Diabetes Mellitus Type 2 Denies: Hypothyroidism Renal/ Medical History: Reports: None Malignancy Medical History: Reports: None GI Medical History: Reports: Gastroesophageal Reflux Disease Musculoskeltal Medical History: Reports: None Skin Medical History: Reports: None Psychiatric Medical History: Reports: None Traumatic Medical History: Reports: None Hematology: Denies: Anemia, Bleeding Tendencies Infectious Medical History: Reports: None Past Surgical History Past Surgical History: Reports: Cardiac Catheterization, Coronary Artery Bypass Graft, Coronary Stent - X3, Herniorrhaphy, Pacemaker, Vascular Surgery - Abdominal aortic aneurysm repair Social History Information Source: Patient Lives with: Family Smoking Status: Former Smoker Electronic Cigarette use?: No Frequency of Alcohol Use: Rare Hx Recreational Drug Use: No Drugs: None Hx Prescription Drug Abuse: No - Advance Directive Resuscitation Status: Full Code Family History Family History: CAD, CVA, DM, Hypertension, Malignancy Parental Family History Reviewed: Yes Children Family History Reviewed: Yes Sibling(s) Family History Reviewed.: Yes Medication/Allergy Home Medications: Acetaminophen [Tylenol Extra Strength 500 mg Tablet] 2 tab PO DAILYP PRN 03/12/19 Apixaban [Eliquis 5 mg Tablet] 5 mg PO BID 03/12/19 Aspirin [Aspirin 81 mg Chewable Tablet] 81 mg PO DAILY 03/12/19 Atorvastatin Calcium [Lipitor 80 mg Tablet] 80 mg PO QHS 03/12/19 Carvedilol [Coreg 3.125 mg Tablet] 3.125 mg PO Q12 03/12/19 Hydrochlorothiazide [Hydrodiuril 25 mg Tablet] 25 mg PO DAILY 03/12/19 Isosorbide Mononitrate [Imdur 30 mg Tablet.er] 30 mg PO DAILY 03/12/19 Lisinopril [Prinivil 40 mg Tablet] 40 mg PO DAILY 03/12/19 Metformin HCl [Glucophage 500 mg Tablet] 500 mg PO BIDBS 03/12/19 Multivitamin [Tab-A-Speedy (Multiple Vitamin) Tablet] 1 tab PO DAILY 03/12/19 Nitroglycerin [Nitrostat 0.4 mg (1/150 Gr) Tabs 25/Bottle] 1 tab SL Q5MP PRN 03/12/19 Omeprazole 20 mg PO Q6AM 03/12/19 Tamsulosin HCl [Flomax 0.4 mg Cap.sr] 0.4 mg PO DAILY 03/12/19 Furosemide [Lasix 20 mg Tablet] 20 mg PO QAM 11/10/19 Allergies/Adverse Reactions: No Known Allergies Allergy (Verified 03/11/19 16:00) Review of Systems Constitutional: ABSENT: chills, fever(s), headache(s), weight gain, weight loss Eyes: ABSENT: visual disturbances Ears: ABSENT: hearing changes Cardiovascular: PRESENT: chest pain. ABSENT: dyspnea on exertion, edema, orthropnea, palpitations Respiratory: ABSENT: cough, hemoptysis Gastrointestinal: ABSENT: abdominal pain, constipation, diarrhea, hematemesis, hematochezia, nausea, vomiting Genitourinary: ABSENT: dysuria, hematuria Musculoskeletal: ABSENT: joint swelling Integumentary: ABSENT: rash, wounds Neurological: ABSENT: abnormal gait, abnormal speech, confusion, dizziness, focal weakness, syncope Psychiatric: ABSENT: anxiety, depression, homidical ideation, suicidal ideation Endocrine: ABSENT: cold intolerance, heat intolerance, polydipsia, polyuria Hematologic/Lymphatic: ABSENT: easy bleeding, easy bruising Physical Exam Vital Signs: Temp Pulse Resp BP Pulse Ox 20 161/99 H 100 11/10/19 16:00 11/10/19 16:00 11/10/19 16:00 General appearance: PRESENT: no acute distress, cooperative, well-developed, well-nourished Head exam: PRESENT: atraumatic, normocephalic Eye exam: PRESENT: conjunctiva pink, EOMI, PERRLA. ABSENT: scleral icterus Ear exam: PRESENT: normal external ear exam Mouth exam: PRESENT: moist, tongue midline Neck exam: ABSENT: carotid bruit, JVD, lymphadenopathy, thyromegaly Respiratory exam: PRESENT: clear to auscultation [place], symmetrical, unlabored. ABSENT: rales, rhonchi, wheezes Cardiovascular exam: PRESENT: irregular rhythm, +S1, +S2, systolic murmur. ABSENT: diastolic murmur, rubs Pulses: PRESENT: normal dorsalis pedis pul Vascular exam: PRESENT: normal capillary refill GI/Abdominal exam: PRESENT: normal bowel sounds, soft. ABSENT: distended, guarding, mass, organolmegaly, rebound, tenderness Rectal exam: PRESENT: deferred Extremities exam: PRESENT: full ROM. ABSENT: calf tenderness, clubbing, pedal edema Musculoskeletal exam: PRESENT: ambulatory Neurological exam: PRESENT: alert, awake, oriented to person, oriented to place, oriented to time, oriented to situation, CN II-XII grossly intact. ABSENT: motor sensory deficit Psychiatric exam: PRESENT: appropriate affect, normal mood. ABSENT: homicidal ideation, suicidal ideation Skin exam: PRESENT: dry, intact, warm. ABSENT: cyanosis, rash Results Laboratory Results: 11/10/19 14:16 11/10/19 14:16 11/10/19 11/10/19 11/10/19 14:16 14:16 14:45 WBC 10.5 RBC 3.74 L Hgb 12.0 L Hct 34.5 L MCV 92 MCH 32.2 MCHC 34.8 RDW 13.2 Plt Count 322 Seg Neutrophils % 77.6 Sodium 140.4 Potassium 4.1 Chloride 100 Carbon Dioxide 32 H Anion Gap 8 BUN 32 H Creatinine 1.19 Est GFR ( Amer) > 60 Glucose 87 Calcium 9.5 Total Bilirubin 0.7 AST 24 Alkaline Phosphatase 129 H Total Protein 7.1 Albumin 3.8 Urine Color YELLOW Urine Appearance SLIGHTLY-CLOUDY Urine pH 5.0 Ur Specific [place] 1.009 Urine Protein NEGATIVE Urine Glucose (UA) NEGATIVE Urine Ketones NEGATIVE Urine Blood NEGATIVE Urine Nitrite NEGATIVE Ur Leukocyte Esterase NEGATIVE Urine WBC (Auto) 0 Urine RBC (Auto) 0 11/10/19 11/10/19 14:16 16:28 Troponin I 0.013 0.023 Impressions: Chest X-Ray 11/10/19 13:46 IMPRESSION: NO ACUTE RADIOGRAPHIC FINDING IN THE CHEST. Assessment and Plan - Diagnosis (1) Chest pain Qualifiers: Chest pain type: unspecified Qualified Code(s): R07.9 - Chest pain, unspecified Is this a current diagnosis for this admission?: Yes Plan: Patient is admitted to medical floor on continuous cardiac telemetry. We will continue to trend troponins. Will request echocardiogram from [facility]; completed in their ED approximately 10 days ago. Stress test completed March 2019 revealed fixed defect and an estimated ejection fraction of 30%. He did not have evidence of reversible ischemia. He is provided daily aspirin and statin therapy. We will increase patient's Imdur to 60 mg daily. SL Nitro as needed for chest pain. Morphine for unrelieved pain. Obtain appropriate blood pressure control. Supplemental oxygen as needed. Will consult Cardiology for opinion regarding appropriateness of repeat stress vs cardiac cath given patients recurrent chest pain. (2) Hypertensive urgency Is this a current diagnosis for this admission?: Yes Plan: Possible cause of chest pain. IV hydralazine as needed for blood pressure control. Increased Imdur to 60 mg daily. Continue home dose coreg, lisinopril and hctz. Cardiac diet. (3) Diabetes Qualifiers: Diabetes mellitus type: type 2 Diabetes mellitus shelter insulin use: without shelter use Diabetes mellitus complication status: without complication Qualified Code(s): E11.9 - Type 2 diabetes mellitus without complications Is this a current diagnosis for this admission?: Yes Plan: Patient's metformin will be held while admitted. Patient is placed on a consistent carb/cardiac diet. Accu-Cheks before meals and at bedtime with Humalog for sliding scale coverage. Hypoglycemia protocol in place. (4) CAD (coronary artery disease) Qualifiers: Coronary Disease-Associated Artery/Lesion type: [place] artery [place] vs. transplanted heart: [place] heart Associated angina: with stable angina Qualified Code(s): I25.118 - Atherosclerotic heart disease of [place] coronary artery with other forms of angina pectoris Is this a current diagnosis for this admission?: Yes Plan: Continue full dose anticoagulation. Continue daily aspirin and statin therapy. Continue home antihypertensive regiment. Remaining management as above. (5) Chronic anticoagulation Is this a current diagnosis for this admission?: Yes Plan: Patient reports that he takes Eliquis at home. Will resume once reconciled. In the interim, he is provided full dose Lovenox for management of ACS (6) HLD (hyperlipidemia) Qualifiers: Hyperlipidemia type: unspecified Qualified Code(s): E78.5 - Hyperlipidemia, unspecified Is this a current diagnosis for this admission?: Yes Plan: Continue atorvastatin. Cardiac diet. (7) HTN (hypertension) Qualifiers: Hypertension type: essential hypertension Qualified Code(s): I10 - Essential (primary) hypertension Is this a current diagnosis for this admission?: Yes Plan: We will continue home medication regiment once reconciled. Cardiac diet. IV hydralazine as needed for blood pressure control. - Time Time Spent with patient: 35 or more minutes Medications reviewed and adjusted accordingly: Yes Anticipated discharge: Home Within: within 48 hours
[2019-11-10] MEDS: INSULIN LISPRO 100 UNIT/ML 3 ML VIAL SUBCUT SCH (21:28)
[2019-11-10] MEDS ORDERED: FUROSEMIDE 20 MG TABLET PO PRN (21:32)
[2019-11-10] MEDS: CARVEDILOL 3.125 MG TABLET PO SCH (21:36)
[2019-11-10] MEDS ORDERED: APIXABAN 5 MG TABLET PO ONE (21:45)
[2019-11-10] MEDS ORDERED: ATORVASTATIN CALCIUM 80 MG TABLET PO SCH (22:00)
[2019-11-10] MEDS ORDERED: AMLODIPINE BESYLATE 5 MG TABLET PO SCH (22:00)
[2019-11-11 05:12] LABS: HEMOGLOBIN 11.9 g/dL (13.5-17.0); MEAN CORPUSCULAR HGB CONC 35.1 g/dL (32.0-36.0); MEAN CORPUSCULAR VOLUME 91 fl (80-97); PLATELET COUNT 300 10^3/uL (150-450); RED BLOOD COUNT 3.74 10^6/uL (4.35-5.55); RED CELL DISTRIBUTION WIDTH 13.2 % (11.5-14.0); WHITE BLOOD COUNT 11.1 10^3/uL (4.0-10.5)
[2019-11-11 05:31] LABS: ANION GAP 8 (5-19); BLOOD UREA NITROGEN 32 mg/dL (7-20); CALCIUM 9.5 mg/dL (8.4-10.2); CARBON DIOXIDE 31 mmol/L (22-30); CHLORIDE 101 mmol/L (98-107); GLUCOSE 109 mg/dL (75-110); POTASSIUM 3.9 mmol/L (3.6-5.0)
[2019-11-11] MEDS ORDERED: PANTOPRAZOLE SODIUM 20 MG TABLET.DR PO SCH (06:00)
[2019-11-11] MEDS ORDERED: BROMFENAC SODIUM LFT_EYE SCH (08:00)
[2019-11-11] MEDS ORDERED: METFORMIN HCL 500 MG TABLET PO SCH (08:00)
[2019-11-11] MEDS: INSULIN LISPRO 100 UNIT/ML 3 ML VIAL SUBCUT SCH ×2 (08:23→12:39)
[2019-11-11] MEDS ORDERED: BESIFLOXACIN HCL 0.6% OPH SUSP 5 ML BOTTLE OS SCH (10:00)
[2019-11-11] MEDS ORDERED: APIXABAN 5 MG TABLET PO SCH (10:00)
[2019-11-11] MEDS ORDERED: LISINOPRIL 10 MG TABLET PO SCH (10:00)
[2019-11-11] MEDS ORDERED: POTASSIUM GLUCONATE 600 MG PO SCH (10:00)
[2019-11-11] MEDS ORDERED: ISOSORBIDE MONONITRATE 60 MG TAB.ER.24H PO SCH (10:00)
[2019-11-11] MEDS ORDERED: (PENDING PHARMACY ID) (Difluprednate [Durezol] 1 DROP) LFT_EYE SCH (10:00)
[2019-11-11] MEDS ORDERED: MULTIVITAMIN TABLET PO SCH (10:00)
[2019-11-11] MEDS ORDERED: TAMSULOSIN HCL 0.4 MG CAP.SR.24H PO SCH (10:00)
[2019-11-11] MEDS ORDERED: ASPIRIN 81 MG TABLET, ENT COATED PO SCH (10:00)
[2019-11-11] MEDS ORDERED: HYDROCHLOROTHIAZIDE 25 MG TABLET PO SCH (10:00)
[2019-11-11] MEDS ORDERED: [UNRECOGNIZED DRUG - OTHER] PO SCH (10:00)
[2019-11-11] MEDS: CARVEDILOL 3.125 MG TABLET PO SCH (10:16)
[2019-11-11 12:38] VITALS: BP 99/54
--- NOTE | 2019-11-11 16:01 | PDOC CONSULTATION ---
Consultation Consult Date: 11/11/19 Provider Consulted: TONEY NAILS Consult reason:: Chest pain History of Present Illness Admission Date/PCP: 11/10/19 17:[facility] Patient complains of: Chest pain History of Present Illness: JOSE NG is a 74 year old male With the following active problems 1. Coronary artery disease 2. CABG-1999 3. [employer]-P left chest wall 4. AAA repair 5. Atrial fibrillation 6. Systemic anticoagulation 7. Systemic hypertension 8. Dyslipidemia Patient presents to the hospital with report of chest pain. Cardiac biomarkers are indeterminate. His EKG shows biventricular paced rhythm. Most recent stress test on March 12, 2019 showed no evidence of infarction or scar. There was evidence of dilated cardiomyopathy with reduced ejection fraction estimated at 35%. Since admission to the hospital patient symptoms of chest pain have resolved. At presentation his blood pressure was significantly elevated which may have played a role in his chest pain. Presently he does not admit to any discomfort or chest pain. He does not smoke cigarettes presently. No familial illnesses reported. Recent evaluation at [facility] is reported. It appears that he was monitored, cardiac biomarkers were measured. No testing was performed. Past Medical History Cardiac Medical History: Reports: Atrial Fibrillation, Coronary Artery Disease, Myocardial Infarction, Hyperlipidema, Hypertension, Peripheral Vascular Disease Pulmonary Medical History: Reports: None Denies: Asthma, Chronic Obstructive Pulmonary Disease (COPD) EENT Medical History: Reports: Other - recent cornea replacement Neurological Medical History: Denies: Seizures Endocrine Medical History: Reports: Diabetes Mellitus Type 2 Denies: Diabetes Mellitus Type 1, Hyperthyroidism, Hypothyroidism Renal/ Medical History: Reports: None Malignancy Medical History: Reports: None GI Medical History: Reports: Gastroesophageal Reflux Disease Denies: Cirrhosis, Hepatitis Musculoskeltal Medical History: Reports: None Denies: Arthritis, Gout Skin Medical History: Reports: None Denies: Eczema, Psoriasis Psychiatric Medical History: Reports: None Denies: Depression Traumatic Medical History: Reports: None Hematology: Reports: Other - recent cornea replacement Denies: Anemia, Bleeding Tendencies Infectious Medical History: Reports: None Past Surgical History Past Surgical History: Reports: Cardiac Catheterization, Coronary Artery Bypass Graft, Coronary Stent - X3, Herniorrhaphy, Pacemaker, Vascular Surgery - Abdominal aortic aneurysm repair Social History Lives with: Family Smoking Status: Former Smoker Cigarettes Packs Per Day: 1.5 Electronic Cigarette use?: No Cigars Per Day: 0 Pipes Per Day: 0 Number of Years Smokin Last Time Smoked: 09/11/1984 Frequency of Alcohol Use: Rare Hx Recreational Drug Use: No Drugs: None Hx Prescription Drug Abuse: No - Advance Directive Resuscitation Status: Full Code Family History Family History: CAD, CVA, DM, Hypertension, Malignancy Parental Family History Reviewed: No - No familial illnesses Children Family History Reviewed: NA Sibling(s) Family History Reviewed.: NA Medication/Allergy Home Medications: Apixaban [Eliquis 5 mg Tablet] 5 mg PO BID 03/12/19 Atorvastatin Calcium [Lipitor 80 mg Tablet] 80 mg PO QHS 03/12/19 Hydrochlorothiazide [Hydrodiuril 25 mg Tablet] 25 mg PO DAILY 03/12/19 Lisinopril [Prinivil 40 mg Tablet] 40 mg PO DAILY 03/12/19 Metformin HCl [Glucophage 500 mg Tablet] 500 mg PO BIDBS 03/12/19 Multivitamin [Tab-A-Speedy (Multiple Vitamin) Tablet] 1 tab PO DAILY 03/12/19 Nitroglycerin [Nitrostat 0.4 mg (1/150 Gr) Tabs 25/Bottle] 1 tab SL Q5MP PRN 03/12/19 Omeprazole 20 mg PO Q6AM 03/12/19 Tamsulosin HCl [Flomax 0.4 mg Cap.sr] 0.4 mg PO DAILY 03/12/19 Amlodipine Besylate [Norvasc 5 mg Tablet] 5 mg PO QHS 11/10/19 Besifloxacin HCl [Besivance 0.6% Oph Susp 5 ml] 1 drop LFT_EYE TID 11/10/19 Bromfenac Sodium 1 drop LFT_EYE QAM 11/10/19 Difluprednate [Durezol] 1 drop LFT_EYE BID 11/10/19 Furosemide [Lasix 20 mg Tablet] 40 mg PO DAILY PRN 11/10/19 Glucosam/Chondr/Collagn/Hyalur [Glucosamine & Chondroitin Cap] 1 tab PO DAILY 11/10/19 Acetaminophen [Tylenol 325 mg Tablet] 650 mg PO Q4HP PRN tablet 11/11/19 Aspirin [Ecotrin 81 mg EC Tablet] 81 mg PO DAILY 11/11/19 Aspirin [Ecotrin 81 mg EC Tablet] 81 mg PO DAILY #90 tabec 11/11/19 Atorvastatin Calcium [Lipitor 80 mg Tablet] 80 mg PO QHS tablet 11/11/19 Carvedilol [Coreg 3.125 mg Tablet] 3.125 mg PO Q12 #60 tablet 11/11/19 Hydrochlorothiazide [Hydrodiuril 25 mg Tablet] 25 mg PO DAILY tablet 11/11/19 Isosorbide Mononitrate [Imdur 60 mg Tablet.er] 60 mg PO DAILY #30 tab.er.24h 11/11/19 Lisinopril [Prinivil 10 mg Tablet] 40 mg PO DAILY tablet 11/11/19 Potassium Gluconate [Potassium] 99 mg PO BID 11/11/19 Potassium Gluconate [Potassium] 600 mg PO BID 11/11/19 Allergies/Adverse Reactions: No Known Allergies Allergy (Verified 11/10/19 20:34) Review of Systems Constitutional: PRESENT: as per HPI Nose, Mouth, and Throat: ABSENT: as per HPI, headache(s), mouth pain, sore thro at, vertigo, other Cardiovascular: PRESENT: chest pain Respiratory: ABSENT: as per HPI, cough, dyspnea, hemoptysis, sputum, other Neurological: ABSENT: as per HPI, abnormal gait, abnormal movements, abnormal speech, confusion, convulsions, dizziness, focal weakness, frequent falls, lack of coordination, memory loss, numbness, paresthesias, restless legs, syncope, tingling, tremor(s), vertigo, weakness, other Physical Exam Vital Signs: Temp Pulse Resp BP Pulse Ox 98.0 F 76 18 99/54 L 97 11/11/19 14:50 11/11/19 14:50 11/11/19 14:50 11/11/19 14:50 11/11/19 14:50 Intake & Output 11/10/19 11/11/19 11/12/19 06:59 06:59 06:59 Intake Total 500 Output Total 825 Balance -825 500 Weight 85.8 kg General appearance: PRESENT: no acute distress, cooperative, well-developed Head exam: PRESENT: atraumatic, normocephalic Eye exam: PRESENT: conjunctiva pink, EOMI Mouth exam: PRESENT: moist Respiratory exam: PRESENT: clear to auscultation germain, symmetrical, unlabored Cardiovascular exam: PRESENT: irregular rhythm, +S1, +S2, other - Healed sternotomy scar Left upper chest wall permanent pacemaker implant site is well- healed with no edema erythema or excoriation. Pulses: PRESENT: normal radial pulses GI/Abdominal exam: PRESENT: soft Rectal exam: PRESENT: deferred Neurological exam: PRESENT: alert, awake, oriented to person, oriented to place, oriented to time, oriented to situation Psychiatric exam: PRESENT: appropriate affect Skin exam: PRESENT: dry, intact Results Laboratory Results: 11/11/19 04:25 11/11/19 04:25 11/11/19 11/11/19 04:25 04:25 WBC 11.1 H RBC 3.74 L Hgb 11.9 L Hct 34.0 L MCV 91 MCH 32.0 MCHC 35.1 RDW 13.2 Plt Count 300 Sodium 139.8 Potassium 3.9 Chloride 101 Carbon Dioxide 31 H Anion Gap 8 BUN 32 H Creatinine 1.09 Est GFR ( Amer) > 60 Glucose 109 Calcium 9.5 11/10/19 11/10/19 11/10/19 14:16 16:28 16:28 Troponin I 0.013 0.023 NT-Pro-B Natriuret Pep 1770 H 11/10/19 11/11/19 21:35 04:25 Troponin I 0.018 0.022 NT-Pro-B Natriuret Pep EKG Comments: Twelve-lead EKG-paced rhythm Telemetry strip showed paced rhythm Nuclear stress test 03/12/2019 -Ejection fraction estimated at 35%. No scintigraphic evidence for myocardial infarction or scar. Impressions: Chest X-Ray 11/10/19 13:46 IMPRESSION: NO ACUTE RADIOGRAPHIC FINDING IN THE CHEST. Status: Image reviewed by me - Sternotomy. Left-sided biventricular pacemaker. Leads in acceptable position, RA RV and probably target vein Assessment & Plan - Diagnosis (1) Pacemaker Is this a current diagnosis for this admission?: Yes Plan: Telemetry demonstrates appropriate pacing with underlying rhythm of likely atrial fibrillation. Biventricular pacing is apparent (2) Chest pain Qualifiers: Chest pain type: unspecified Qualified Code(s): R07.9 - Chest pain, unspecified Is this a current diagnosis for this admission?: Yes Plan: Description of chest pain does not particularly sound ischemic. Cardiac troponin profile is flat and indeterminate. Myocardial perfusion imaging study in March 2019 is negative for ischemia. The patient continues to have symptoms cardiac condition can be pursued as an outpatient although during this admission he had significant elevated blood pressure which could have contributed to chest pain due to subendocardial ischemia. (3) CAD (coronary artery disease) Qualifiers: Coronary Disease-Associated Artery/Lesion type: [place] artery [place] vs. transplanted heart: [place] heart Associated angina: with stable angina Qualified Code(s): I25.118 - Atherosclerotic heart disease of [place] coronary artery with other forms of angina pectoris Is this a current diagnosis for this admission?: Yes Plan: Status post CABG Continue guideline directed medical therapy for coronary artery disease. (4) Chronic anticoagulation Is this a current diagnosis for this admission?: Yes Plan: Patient is managed with systemic anticoagulation. Tolerating well. No bleeding noted. (5) Chronic atrial fibrillation Is this a current diagnosis for this admission?: Yes Plan: Asymptomatic Rate controlled Continue to monitor. - Notes Notes: At the present time especially given recent stress test which was negative for myocardial ischemia would not recommend further testing If patient continues to be symptomatic would recommend cardiac ablation which can be pursued as an outpatient Agree with long-acting nitrates which can ameliorate myocardial ischemia symptoms.
--- NOTE | 2019-11-12 13:05 | PDOC DISCHARGE SUMMARY ---
Impression - Admit/DC Date/PCP Admission Date/Primary Care Provider: 11/10/19 [facility] Discharge Date: 11/11/19 - Discharge Diagnosis (1) Chest pain Is this a current diagnosis for this admission?: Yes (2) Hypertensive urgency Is this a current diagnosis for this admission?: Yes (3) Diabetes Is this a current diagnosis for this admission?: Yes (4) CAD (coronary artery disease) Is this a current diagnosis for this admission?: Yes (5) Chronic anticoagulation Is this a current diagnosis for this admission?: Yes (6) HLD (hyperlipidemia) Is this a current diagnosis for this admission?: Yes (7) HTN (hypertension) Is this a current diagnosis for this admission?: Yes - Additional Information Resuscitation Status: Full Code Discharge Diet: Cardiac, Diabetic Discharge Activity: Activity As Tolerated, Balance Activity w/Rest, Slowly Increase Activity, Weigh Daily Referrals: [facility] [Provider Group] - 11/18/19 8:30 am (PATIENT HAS MULTIPLE APPTS AT THE [facility] 17 0830 [facility] 20 1000 [facility] 15 1300 [facility]) Prescriptions: Carvedilol [Coreg 3.125 mg Tablet] 3.125 mg PO Q12 #60 tablet Aspirin [Ecotrin 81 mg EC Tablet] 81 mg PO DAILY #90 tabec Isosorbide Mononitrate [Imdur 60 mg Tablet.er] 60 mg PO DAILY #30 tab.er.24h Home Medications: Apixaban [Eliquis 5 mg Tablet] 5 mg PO BID 03/12/19 Atorvastatin Calcium [Lipitor 80 mg Tablet] 80 mg PO QHS 03/12/19 Hydrochlorothiazide [Hydrodiuril 25 mg Tablet] 25 mg PO DAILY 03/12/19 Lisinopril [Prinivil 40 mg Tablet] 40 mg PO DAILY 03/12/19 Metformin HCl [Glucophage 500 mg Tablet] 500 mg PO BIDBS 03/12/19 Multivitamin [Tab-A-Speedy (Multiple Vitamin) Tablet] 1 tab PO DAILY 03/12/19 Nitroglycerin [Nitrostat 0.4 mg (1/150 Gr) Tabs 25/Bottle] 1 tab SL Q5MP PRN 03/12/19 Omeprazole 20 mg PO Q6AM 03/12/19 Tamsulosin HCl [Flomax 0.4 mg Cap.sr] 0.4 mg PO DAILY 03/12/19 Amlodipine Besylate [Norvasc 5 mg Tablet] 5 mg PO QHS 11/10/19 Besifloxacin HCl [Besivance 0.6% Oph Susp 5 ml] 1 drop LFT_EYE TID 11/10/19 Bromfenac Sodium 1 drop LFT_EYE QAM 11/10/19 Difluprednate [Durezol] 1 drop LFT_EYE BID 11/10/19 Furosemide [Lasix 20 mg Tablet] 40 mg PO DAILY PRN 11/10/19 Glucosam/Chondr/Collagn/Hyalur [Glucosamine & Chondroitin Cap] 1 tab PO DAILY 11/10/19 Acetaminophen [Tylenol 325 mg Tablet] 650 mg PO Q4HP PRN tablet 11/11/19 Aspirin [Ecotrin 81 mg EC Tablet] 81 mg PO DAILY 11/11/19 Aspirin [Ecotrin 81 mg EC Tablet] 81 mg PO DAILY #90 tabec 11/11/19 Atorvastatin Calcium [Lipitor 80 mg Tablet] 80 mg PO QHS tablet 11/11/19 Carvedilol [Coreg 3.125 mg Tablet] 3.125 mg PO Q12 #60 tablet 11/11/19 Hydrochlorothiazide [Hydrodiuril 25 mg Tablet] 25 mg PO DAILY tablet 11/11/19 Isosorbide Mononitrate [Imdur 60 mg Tablet.er] 60 mg PO DAILY #30 tab.er.24h 11/11/19 Lisinopril [Prinivil 10 mg Tablet] 40 mg PO DAILY tablet 11/11/19 Potassium Gluconate [Potassium] 99 mg PO BID 11/11/19 Potassium Gluconate [Potassium] 600 mg PO BID 11/11/19 History of Present Illiness History of Present Illness: JOSE NG is a 74 year old male with past medical history significant for CAD (CABG x3) pacemaker, AAA repair, chronically anticoagulated on Eliquis, Hypertension, hyperlipidemia, DM 2 who presented to the emergency department today for report of chest pain noted shortly after waking this morning that resolved a few minutes after taking sublingual nitroglycerin. He states that his chest pain recurred a couple of hours later, again requiring nitroglycerin. At both times, his chest pain occurred while at rest, was located left sternal border described as discomfort with left shoulder pressure. He denies associated symptoms. Of note, the patient was seen at [facility] ED 10 days ago for similar symptoms. He underwent serial troponins x4 and an echocardiogram at that visit. 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 He has not yet seen his children's choir director. Evaluation in the emergency department today revealed hypertension (BP 190/100), remaining vital signs nml, mild anemia (Hgb 12), slightly elevated bicarb of 32 but otherwise unremarkable chemistry. EKG shows ventricular paced rhythm. CXR is negative for acute findings. Troponin is minimally increased 0.103-> 0.23. He is referred to the hospitalist service for admission and management of the above stated complaints and findings. Hospital Course Hospital Course: Pt was admitted to the medical floor on continuous telemetry; he remained in a ventricular paced rhythm with likely underlying afib throughout his admission. Serial troponins were negative x 4. Chest xray was benign. Echocardiogram was recently done at [facility] and so was not repeated. Myocardial perfusion imaging study in March 2019 is negative for ischemia. Cardiology was consulted; appreciate Dr. Mullins's recommendations to follow up with his established children's choir director as scheduled on 11/20. Should chest discomfort persist, patient may be a candidate for cardiac ablation. The patient was discharged home in stable condition to the care of family members. His Imdur has been increased to 60 mg daily. He is advised to take his medications as prescribed and to eat a low sodium diet. He is instructed to return to the emergency department as needed for concerning symptoms. Physical Exam Vital Signs: Temp Pulse Resp BP Pulse Ox 98.0 F 76 18 99/54 L 97 11/11/19 14:50 11/11/19 14:50 11/11/19 14:50 11/11/19 14:50 11/11/19 14:50 Intake & Output 11/11/19 11/12/19 11/13/19 06:59 06:59 06:59 Intake Total 500 Output Total 825 Balance -825 500 Weight 85.8 kg General appearance: PRESENT: no acute distress, hard of hearing, well-developed, well-nourished Head exam: PRESENT: atraumatic, normocephalic Eye exam: PRESENT: conjunctiva pink, EOMI, PERRLA. ABSENT: scleral icterus Mouth exam: PRESENT: moist, tongue midline Respiratory exam: PRESENT: clear to auscultation germain. ABSENT: rales, rhonchi, wheezes Cardiovascular exam: PRESENT: RRR. ABSENT: diastolic murmur, rubs, systolic murmur Pulses: PRESENT: normal dorsalis pedis pul Vascular exam: PRESENT: normal capillary refill Extremities exam: PRESENT: full ROM. ABSENT: calf tenderness, clubbing, pedal edema Neurological exam: PRESENT: alert, awake, oriented to person, oriented to place, oriented to time, oriented to situation, CN II-XII grossly intact. ABSENT: motor sensory deficit Psychiatric exam: PRESENT: appropriate affect, normal mood. ABSENT: homicidal ideation, suicidal ideation Skin exam: PRESENT: dry, intact, warm. ABSENT: cyanosis, rash Results Laboratory Results: WBC 11.1 10^3/uL (4.0-10.5) H 11/11/19 04:25 RBC 3.74 10^6/uL (4.35-5.55) L 11/11/19 04:25 Hgb 11.9 g/dL (13.5-17.0) L 11/11/19 04:25 Hct 34.0 % (37.9-51.0) L 11/11/19 04:25 MCV 91 fl (80-97) 11/11/19 04:25 MCH 32.0 pg (27.0-33.4) 11/11/19 04:25 MCHC 35.1 g/dL (32.0-36.0) 11/11/19 04:25 RDW 13.2 % (11.5-14.0) 11/11/19 04:25 Plt Count 300 10^3/uL (150-450) 11/11/19 04:25 Lymph % (Auto) 14.4 % (13-45) 11/10/19 14:16 [place]ata[place] % (Auto) 6.4 % (3-13) 11/10/19 14:16 Eos % (Auto) 1.1 % (0-6) 11/10/19 14:16 Baso % (Auto) 0.5 % (0-2) 11/10/19 14:16 Absolute Neuts (auto) 8.1 10^3/uL (1.7-8.2) 11/10/19 14:16 Absolute Lymphs (auto) 1.5 10^3/uL (0.5-4.7) 11/10/19 14:16 Absolute Monos (auto) 0.7 10^3/uL (0.1-1.4) 11/10/19 14:16 Absolute Eos (auto) 0.1 10^3/uL (0.0-0.6) 11/10/19 14:16 Absolute Basos (auto) 0.0 10^3/uL (0.0-0.2) 11/10/19 14:16 Seg Neutrophils % 77.6 % (42-78) 11/10/19 14:16 Sodium 139.8 mmol/L (137-145) 11/11/19 04:25 Potassium 3.9 mmol/L (3.6-5.0) 11/11/19 04:25 Chloride 101 mmol/L (98-107) 11/11/19 04:25 Carbon Dioxide 31 mmol/L (22-30) H 11/11/19 04:25 Anion Gap 8 (5-19) 11/11/19 04:25 BUN 32 mg/dL (7-20) H 11/11/19 04:25 Creatinine 1.09 mg/dL (0.52-1.25) 11/11/19 04:25 Est GFR ( Amer) > 60 (>60) 11/11/19 04:25 Est GFR (MDRD) Non-Af > 60 (>60) 11/11/19 04:25 Glucose 109 mg/dL (75-110) 11/11/19 04:25 POC Glucose 115 mg/dL (70-110) H 11/11/19 07:35 Calcium 9.5 mg/dL (8.4-10.2) 11/11/19 04:25 Total Bilirubin 0.7 mg/dL (0.2-1.3) 11/10/19 14:16 Direct Bilirubin 0.3 mg/dL (0.0-0.4) 11/10/19 14:16 Neonat Total Bilirubin Not Reportable 11/10/19 14:16 Neonat Direct Bilirubin Not Reportable 11/10/19 14:16 Neonat Indirect Bili Not Reportable 11/10/19 14:16 AST 24 U/L (17-59) 11/10/19 14:16 ALT 21 U/L (<50) 11/10/19 14:16 Alkaline Phosphatase 129 U/L (38-126) H 11/10/19 14:16 Troponin I 0.022 ng/mL 11/11/19 04:25 NT-Pro-B Natriuret Pep 1770 pg/mL (<450) H 11/10/19 16:28 Total Protein 7.1 g/dL (6.3-8.2) 11/10/19 14:16 Albumin 3.8 g/dL (3.5-5.0) 11/10/19 14:16 Urine Color YELLOW 11/10/19 14:45 Urine Appearance SLIGHTLY-CLOUDY 11/10/19 14:45 Urine pH 5.0 (5.0-9.0) 11/10/19 14:45 Ur Specific [place] 1.009 11/10/19 14:45 Urine Protein NEGATIVE mg/dL (NEGATIVE) 11/10/19 14:45 Urine Glucose (UA) NEGATIVE mg/dL (NEGATIVE) 11/10/19 14:45 Urine Ketones NEGATIVE mg/dL (NEGATIVE) 11/10/19 14:45 Urine Blood NEGATIVE (NEGATIVE) 11/10/19 14:45 Urine Nitrite NEGATIVE (NEGATIVE) 11/10/19 14:45 Urine Bilirubin NEGATIVE (NEGATIVE) 11/10/19 14:45 Urine Urobilinogen NEGATIVE mg/dL (<2.0) 11/10/19 14:45 Ur Leukocyte Esterase NEGATIVE (NEGATIVE) 11/10/19 14:45 Urine WBC (Auto) 0 /HPF 11/10/19 14:45 Urine RBC (Auto) 0 /HPF 11/10/19 14:45 Urine Bacteria (Auto) TRACE /HPF 11/10/19 14:45 Squamous Epi Cells Auto <1 /HPF 11/10/19 14:45 Urine Mucus (Auto) OCC /LPF 11/10/19 14:45 Urine Ascorbic Acid NEGATIVE (NEGATIVE) 11/10/19 14:45 11/10/19 11/10/19 11/10/19 14:16 16:28 16:28 Troponin I 0.013 0.023 NT-Pro-B Natriuret Pep 1770 H 11/10/19 11/11/19 21:35 04:25 Troponin I 0.018 0.022 NT-Pro-B Natriuret Pep Impressions: Chest X-Ray 11/10/19 13:46 IMPRESSION: NO ACUTE RADIOGRAPHIC FINDING IN THE CHEST. Plan Plan of Treatment: Pt is discharged home in stable condition. He is advised to follow up with his primary care provider and to keep his scheduled appointment with his children's choir director. He is encouraged to eat a heart healthy diet and to take his medications as prescribed. He is instructed to return to the emergency department for any concerning symptoms. Time Spent: Greater than 30 Minutes Stroke Is this a Stroke Patient?: No Acute Heart Failure - Is this a Heart Failure Patient?: No
== END 2019-11-11 16:00 | disposition home or self-care (01) ==
LOC: ER 13:23 → EH 17:21 → 5 18:22
PROVIDERS: ADMIT Internal Medicine; ATTEND Internal Medicine
DX: R07.89 Other chest pain (principal); I16.0 Hypertensive urgency; E11.51 Type 2 diabetes mellitus with diabetic peripheral angiopathy without gangrene; I25.118 Atherosclerotic heart disease of native coronary artery with other forms of angina pectoris; E78.5 Hyperlipidemia, unspecified; D64.9 Anemia, unspecified; I42.0 Dilated cardiomyopathy; I25.2 Old myocardial infarction; I48.20 Chronic atrial fibrillation, unspecified; K21.9 Gastro-esophageal reflux disease without esophagitis; R06.02 Shortness of breath; Z79.01 Long term (current) use of anticoagulants; Z79.899 Other long term (current) drug therapy; Z79.84 Long term (current) use of oral hypoglycemic drugs; Z79.82 Long term (current) use of aspirin; Z95.1 Presence of aortocoronary bypass graft; Z98.890 Other specified postprocedural states; Z95.5 Presence of coronary angioplasty implant and graft; Z87.891 Personal history of nicotine dependence; Z82.49 Family history of ischemic heart disease and other diseases of the circulatory system; Z95.0 Presence of cardiac pacemaker
CPT/HCPCS: 93005; 99285; 36415 ×2; 82962 ×2; 85025; 85027; 80048; 80053; 81001; 84484 ×2; 83880; 71046; 93010; G0378 ×3; J0360; J3490 ×3

== ENCOUNTER 2020-05-30 14:46 | Emergency (ER) | payer OTHER, MEDICARE ==
--- NOTE | 2020-05-30 15:47 | ER Document Report ---
ED Medical Screen (RME) - General Chief Complaint: Low Back Pain Stated Complaint: LOW BACK PAIN Time Seen by Provider: 05/30/20 15:42 Primary Care Provider: DULCE,MARIPOSA [Primary Care Provider] - Follow up as needed Mode of Arrival: Ambulatory Information source: Patient Notes: 75-year-old male presented to ED for complaint of back pain for the last 2 3 days. He has not had any falls or injuries. He is never had pain like this before. He does have some sciatica pain at times but this is not at all like that. He has had a triple a repair in the past. He is alert oriented respirations regular nonlabored speaking in full sentences. I have greeted and performed a rapid initial assessment of this patient. A comprehensive ED assessment and evaluation of the patient, analysis of test results and completion of medical decision making process will be conducted by an additional ED providers. TRAVEL OUTSIDE OF THE [place] IN LAST 30 DAYS: No - Related Data Allergies/Adverse Reactions: No Known Allergies Allergy (Verified 11/10/19 20:34) Past Medical History - Past Medical History Cardiac Medical History: Reports: Hx Atrial Fibrillation, Hx Coronary Artery Disease, Hx Heart Attack, Hx Hypercholesterolemia, Hx Hypertension, Hx Peripheral Vascular Disease Pulmonary Medical History: Reports: None EENT Medical History: Reports: None Neurological Medical History: Reports: None. Denies: Hx Seizures Endocrine Medical History: Reports: Hx Diabetes Mellitus Type 2 Renal/ Medical History: Reports: Hx Benign Prostatic Hyperplasia, Hx Kidney Stones Malignancy Medical History: Reports None GI Medical History: Reports: Hx Gastroesophageal Reflux Disease, Hx Colonoscopy, Hx Endoscopy Musculoskeltal Medical History: Reports Hx Arthritis, Reports Hx Musculoskeletal Deformity, Reports Hx Musculoskeletal Trauma Skin Medical History: Reports None Psychiatric Medical History: Reports: None Infectious Medical History: Reports: None Past Surgical History: Reports: Hx Abdominal Surgery, Hx Cardiac Catheterization, Hx Cardiac Surgery - pacemaker 2018, Hx Coronary Artery Bypass Graft, Hx Coronary Stent - X3, Hx Herniorrhaphy, Hx Inguinal Hernia, Hx Orthopedic Surgery - Knee surgery, Hx Pacemaker, Hx Vascular Surgery - Abdominal aortic aneurysm repair, Other - Eye surgery - Immunizations Immunizations up to date: No Hx Diphtheria, Pertussis, Tetanus Vaccination: No Physical Exam - Vital signs Vitals: Temp Pulse Resp BP Pulse Ox 98.1 F 83 16 136/61 H 97 05/30/20 15:25 05/30/20 15:25 05/30/20 15:25 05/30/20 15:25 05/30/20 15:25 Course - Vital Signs Vital signs: Temp Pulse Resp BP Pulse Ox 98.1 F 83 16 136/61 H 97 05/30/20 15:25 05/30/20 15:25 05/30/20 15:25 05/30/20 15:25 05/30/20 15:25 Doctor's Discharge - Discharge [facility] - Follow up as needed
[2020-05-30 16:57] LABS: ABSOLUTE BASOPHILS # (AUTO) 0.1 10^3/uL (0.0-0.2); ABSOLUTE EOSINOPHILS # (AUTO) 0.1 10^3/uL (0.0-0.6); ABSOLUTE LYMPHOCYTES (AUTO) 1.6 10^3/uL (0.5-4.7); ABSOLUTE MONOCYTES (AUTO) 0.8 10^3/uL (0.1-1.4); ABSOLUTE NEUT (AUTO) 8.3 10^3/uL (1.7-8.2); BASOPHILS % (AUTO) 0.8 % (0-2); EOSINOPHILS % (AUTO) 1.2 % (0-6); HEMATOCRIT 35.1 % (37.9-51.0); HEMOGLOBIN 12.1 g/dL (13.5-17.0); LYMPHOCYTES % (AUTO) 14.3 % (13-45); MEAN CORPUSCULAR HEMOGLOBIN 31.5 pg (27.0-33.4); MEAN CORPUSCULAR HGB CONC 34.4 g/dL (32.0-36.0); MEAN CORPUSCULAR VOLUME 92 fl (80-97); MONOCYTES % (AUTO) 7.8 % (3-13); PLATELET COUNT 309 10^3/uL (150-450); RED BLOOD COUNT 3.83 10^6/uL (4.35-5.55); RED CELL DISTRIBUTION WIDTH 13.7 % (11.5-14.0); SEGMENTED NEUTROPHILS % (AUTO) 75.9 % (42-78); TOTAL CELLS COUNTED % (AUTO) 100 %; WHITE BLOOD COUNT 10.9 10^3/uL (4.0-10.5)
[2020-05-30 17:12] LABS: ALBUMIN 4.2 g/dL (3.5-5.0); ALKALINE PHOSPHATASE 115 U/L (38-126); ANION GAP 6 (5-19); ASPARTATE AMINO TRANSFERASE 24 U/L (17-59); BILIRUBIN,DIRECT 0.3 mg/dL (0.0-0.4); BILIRUBIN,TOTAL 0.7 mg/dL (0.2-1.3); BLOOD UREA NITROGEN 33 mg/dL (7-20); CALCIUM 9.3 mg/dL (8.4-10.2); CARBON DIOXIDE 30 mmol/L (22-30); CHLORIDE 100 mmol/L (98-107); GLUCOSE 101 mg/dL (75-110); POTASSIUM 4.8 mmol/L (3.6-5.0)
[2020-05-30] MEDS ORDERED: KETOROLAC TROMETHAMINE 60 MG/2 ML SDV IM ONE (17:34)
[2020-05-30 17:35] LABS: APPEARANCE,URINE CLEAR; BILIRUBIN,URINE NEGATIVE (NEGATIVE); COLOR,URINE YELLOW; GLUCOSE, URINE NEGATIVE (NEGATIVE); KETONES,URINE NEGATIVE (NEGATIVE); LEUKOCYTE ESTERASE,URINE NEGATIVE (NEGATIVE); NITRITE,URINE NEGATIVE (NEGATIVE); PROTEIN,URINE NEGATIVE (NEGATIVE); URINE SPECIFIC GRAVITY 1.014; UROBILINOGEN,URINE NEGATIVE mg/dL (<2.0)
--- NOTE | 2020-05-30 17:40 | ER Document Report ---
ED General - General Chief Complaint: Back Pain Stated Complaint: LOW BACK PAIN Time Seen by Provider: 05/30/20 15:42 Primary Care Provider: DULCE,MARIPOSA [Primary Care Provider] - Follow up as needed Mode of Arrival: Ambulatory Notes: This 75-year-old man presents to the emergency department with a complaint of lower back pain. States that he had a stress test done on Monday and feels that the activities put him through little bit of a physical stress as well. Since that time he is complaining of lower back pain involving the lumbar region. He complains of shooting pain last night. He has taken Tylenol with some mild relief. He denies neurologic involvement, no weakness in his legs no numbness and no incontinence of stool or bowel. TRAVEL OUTSIDE OF THE [place] IN LAST 30 DAYS: No - Related Data Allergies/Adverse Reactions: No Known Allergies Allergy (Verified 05/30/20 15:50) Past Medical History - General Information source: Patient - Social History Smoking Status: Never Smoker Chew tobacco use (# tins/day): No Frequency of alcohol use: None Drug Abuse: None Family History: Reviewed & Not Pertinent, CAD, CVA, DM, Hypertension, Malignancy - Past Medical History Cardiac Medical History: Reports: Hx Atrial Fibrillation, Hx Coronary Artery Disease, Hx Heart Attack, Hx Hypercholesterolemia, Hx Hypertension, Hx Peripheral Vascular Disease Pulmonary Medical History: Reports: None EENT Medical History: Reports: None Neurological Medical History: Reports: None. Denies: Hx Seizures Endocrine Medical History: Reports: Hx Diabetes Mellitus Type 2 Renal/ Medical History: Reports: Hx Benign Prostatic Hyperplasia, Hx Kidney Stones Malignancy Medical History: Reports None GI Medical History: Reports: Hx Gastroesophageal Reflux Disease, Hx Colonoscopy, Hx Endoscopy Musculoskeletal Medical History: Reports Hx Arthritis, Reports Hx Musculoskeletal Deformity, Reports Hx Musculoskeletal Trauma Skin Medical History: Reports None Psychiatric Medical History: Reports: None Infectious Medical History: Reports: None Past Surgical History: Reports: Hx Abdominal Surgery, Hx Cardiac Catheterization, Hx Cardiac Surgery - pacemaker 2018, Hx Coronary Artery Bypass Graft, Hx Coronary Stent - X3, Hx Herniorrhaphy, Hx Inguinal Hernia, Hx Orthopedic Surgery - Knee surgery, Hx Pacemaker, Hx Vascular Surgery - Abdominal aortic aneurysm repair, Other - Eye surgery - Immunizations Immunizations up to date: No Hx Diphtheria, Pertussis, Tetanus Vaccination: No Hx Pneumococcal Vaccination: 05/12/18 Review of Systems - Review of Systems Notes: Constitutional: Negative for fever. HENT: Negative for sore throat. Eyes: Negative for visual changes. Cardiovascular: Negative for chest pain. Respiratory: Negative for shortness of breath. Gastrointestinal: Negative for abdominal pain, vomiting or diarrhea. Genitourinary: Negative for dysuria. Musculoskeletal: See HPI Skin: Negative for rash. Neurological: Negative for headaches, weakness or numbness. 10 point ROS negative except as marked above and in HPI. Physical Exam - Vital signs Vitals: Temp Pulse Resp BP Pulse Ox 98.1 F 83 16 136/61 H 97 05/30/20 15:25 05/30/20 15:25 05/30/20 15:25 05/30/20 15:25 05/30/20 15:25 - Notes Notes: PHYSICAL EXAMINATION: Physical Exam: General: Well-nourished well-developed in no acute distress HEENT: NC/AT, pupils equal round and reactive to light, MM moist,nares clear, oropharynx clear, airway patent Neck: supple, no adenopathy, no masses. Good range of motion Lungs: clear, no wheezing, no rales no rhonchi CVS: Regular rate and rhythm no murmur gallop or rub Abdomen: Soft, active, nontender, no masses, no hepatosplenomegaly Back: Tenderness in the left paraspinous muscle group, increased tightness on the left compared to right, no midline tenderness. No CVA tenderness. Neuro is intact Ext: No edema, clubbing or cyanosis. Neuro: Alert and responsive, moving all 4 extremities on command, cranial nerves intact, no focal findings Skin: Intact no open lesions, no rash PSYCH: Normal mood, normal affect. Course - Re-evaluation Re-evalutation: 05/30/20 17:37 This 75-year-old man is presenting with musculoskeletal etiology related back pain. He has gotten some relief with Tylenol. He is having some symptoms suggestive of muscle spasm. No trauma and urine is clear. He is being treated with a low-dose muscle relaxant and anti-inflammatory medications. I have instructed him to use a cold compress to this left lower back area of tightness and pain and to do some stretching exercises. She is in agreement with this plan and will be discharged home. - Vital Signs Vital signs: Temp Pulse Resp BP Pulse Ox 98.1 F 83 16 136/61 H 97 05/30/20 15:25 05/30/20 15:25 05/30/20 15:25 05/30/20 15:25 05/30/20 15:25 - Laboratory Result Diagrams: 05/30/20 16:20 05/30/20 16:20 Laboratory results interpreted by me: 05/30/20 05/30/20 16:20 16:20 WBC 10.9 H RBC 3.83 L Hgb 12.1 L Hct 35.1 L Absolute Neuts (auto) 8.3 H Sodium 136.4 L BUN 33 H Est GFR (MDRD) Non-Af 59 L 05/30/20 17:38 I have reviewed laboratory data and used this information for the treatment decisions regarding the patient. Discharge - Discharge Clinical Impression: Lumbar back pain, Lumbar paraspinal muscle spasm Condition: Good Disposition: HOME, SELF-CARE Instructions: Ice Packs ([facility]), Low Back Pain ([facility]) Additional Instructions: You were seen in the emergency department today with lower back pain which appears to be musculoskeletal in etiology. You are also having symptoms suggestive of muscle spasms. Please take the medications that are being prescribed muscle relaxant and anti-inflammatory pain medications you may use a cold pack to the area of pain as well. Stretching exercises may be useful. If you are lying in a reclined position bringing your knee toward the chest and stretching the lower back muscles may be useful. Follow-up with your primary care doctor as needed If your symptoms are worsening or if you have other concerns you may return to the emergency department for further evaluation and treatment. HOME CARE INSTRUCTIONS & INFORMATION: Thank you for choosing us for your medical needs. We hope you're satisfied with the care you received. After you leave, you must properly care for your problem and, at the same time, observe its progress. Any condition can change. Some illnesses can change rapidly over hours or days. If your condition worsens, return to the Emergency Department or see your physician promptly. ABOUT YOUR X-RAYS AND EKG'S: If you had an EKG or X-rays taken, they have been read by the Emergency Physician. The X-rays and EKG's will also be read by a Radiologist or Airline Radio Operator within 24 hours. If discrepancies are noted, you will be notified by telephone. Please be certain the ED has a correct telephone number & address where you can be reached. Also, realize that some fractures or abnormalities do not show up on initial X-rays. If your symptoms continue, see your physician. ABOUT YOUR LABORATORY TEST: If you had laboratory tests, the results have been reviewed by the Emergency Physician. Some test results (for example cultures) may not be available for several days. You will be contacted if any test result shows you need additional treatment. Please be certain the ED has a correct telephone number and address where you can be reached. ABOUT YOUR MEDICATIONS: You will receive instructions on how to take your medicine on the prescription label you receive. Additional information may be provided by the Pharmacy. If you have questions afterwards, call the ED for clarification or further instructions. Some prescribed medications may cause drowsiness. Do not perform tasks such as driving a car or operating machinery without consulting your Pharmacist. If you feel you need a refill of pain medication, your condition will need re-evaluation. Please do not call for a refill of any medication. ABOUT YOUR SIGNATURE: Signature of this document acknowledges to followin. Understanding that you received emergency treatment and that you may be released before al medical problems are known or treated. Please be certain the ED has a correct phone number & address where you can be reached. 2. Acknowledgement that you will arrange for follow-up care as recommended. 3. Authorization for the Emergency Physician to provide information to your follow-up Physician in order to maximize your care. AT ANY TIME, IF YOUR SYMPTOMS CHANGE SIGNIFICANTLY OR WORSEN OR YOU DEVELOP NEW SYMPTOMS, RETURN TO THE EMERGENCY DEPARTMENT IMMEDIATELY FOR RE-EVALUATION. OUR GOAL IS TO PROVIDE EXCELLENT MEDICAL CARE! WE HOPE THAT WE HAVE MET YOUR EXPECTATIONS DURING YOUR EMERGENCY DEPARTMENT VISIT AND THAT YOU FEEL YOU HAVE RECEIVED EXCELLENT CARE! Prescriptions: Baclofen [Baclofen 10 mg Tablet] 10 mg PO BID PRN #20 tab PRN Reason: Muscle Spasms Naproxen [Naprosyn] 500 mg PO BID PRN #20 tablet PRN Reason: For Pain Referrals: [facility] [Primary [facility] Provider] - Follow up as needed
[2020-05-30 18:07] VITALS: BP 169/78
== END 2020-05-30 18:08 | disposition home or self-care (01) ==
LOC: ER 14:46
DX: M62.830 Muscle spasm of back (principal); I48.91 Unspecified atrial fibrillation; I25.2 Old myocardial infarction; E78.00 Pure hypercholesterolemia, unspecified; I10 Essential (primary) hypertension; E11.9 Type 2 diabetes mellitus without complications; Z95.1 Presence of aortocoronary bypass graft
CPT/HCPCS: 99284; 96372; 36415; 85025; 80053; 81001; J1885